=== PATIENT | male | born 1940 | race Caucasian/White ===

== ENCOUNTER 2018-05-10 15:11 | Emergency (ER) | payer MEDICARE ==
[2018-05-10 16:28] LABS: #Basophils 0.1 thou/uL (0.0-0.2); #Lymphocytes 2.3 thou/uL (1.20-3.40); #Neutrophils 10.5 thou/uL (1.40-6.50); %Basophils 0.5 % (0.0-1.0); %Eosinophils 0.3 % (0.0-10.0); %Lymphocytes 16.6 % (21.0-51.0); %Monocytes 7.2 % (0.0-10.0); %Neutrophils 75.4 % (42.0-75.0); Hemoglobin 8.8 g/dL (14.0-18.0); Mean Corpuscular HGB CONC 32.5 g/dL (32.0-36.0); Mean Corpuscular Hemoglobin 30.7 pg (27.0-31.0); Mean Corpuscular Volume 94.3 fL (78.0-98.0); Mean Platelet Volume 5.7 fL (7.4-10.4); Platelet Count 489 thou/uL (130-400); RBC Distribution Width 15.1 % (11.5-14.5); Red Blood Cell (RBC) Count 2.86 mill/uL (4.70-6.10)
[2018-05-10 16:50] LABS: ALT (SGPT) 16 U/L (8-55); AST (SGOT) 19 U/L (5-34); Albumin 3.9 g/dL (3.4-4.8); Alkaline Phosphatase 72 U/L (40-150); Anion Gap 17 mmol/L (10-20); BUN (Urea Nitrogen) 28 mg/dL (8.4-25.7); Bilirubin, Total 1.1 mg/dL (0.2-1.2); Calc. Creatinine Clearance 0 mL/min (70-130); Calcium 9.5 mg/dL (7.8-10.44); Carbon Dioxide 23 mmol/L (23-31); Chloride 104 mmol/L (98-107); Estimated GFR-MDRD 46; Globulin 2.8 g/dL (2.4-3.5); Glucose 147 mg/dL (83-110); Protein, Total 6.7 g/dL (5.8-8.1); Sodium 139 mmol/L (136-145)
--- NOTE | 2018-05-10 17:21 | RAD ---
PA AND LATERAL VIEWS CHEST: Date: 05/10/18 HISTORY: Cough. Chest pain. FINDINGS/IMPRESSION: Comparison made with exam of 03/10/18. There are changes of median sternotomy. Right-sided AICD remains in place. There has been interval pl acement of a left subclavian Port-A-Cath with tip in the projection of the SVC. The heart is enlarged . There is a right pleural effusion and adjacent consolidation. No pneumothoraces are seen. POS: [facility]
[2018-05-10] MEDS ORDERED: Piperacillin/Tazobactam 3.375 GM VIAL ONE (17:33)
[2018-05-10 18:13] LABS: Troponin I 0.017 ng/mL (< 0.028)
== END 2018-05-10 18:43 | disposition short-term general hospital (02) ==
LOC: NAV ERS 15:11
DX: J18.9 Pneumonia, unspecified organism (principal); D72.829 Elevated white blood cell count, unspecified; J90 Pleural effusion, not elsewhere classified; Z87.81 Personal history of (healed) traumatic fracture; S20.229D Contusion of unspecified back wall of thorax, subsequent encounter; W19.XXXA Unspecified fall, initial encounter
CPT/HCPCS: 71046; 80053; 83605; 83880; 84484; 85025; 87040; 93005; 94760; 96365; 96375; J1956; J2543

== ENCOUNTER 2018-05-24 13:39 | Inpatient (IN) | payer MEDICARE ==
[2018-05-24] MEDS ORDERED: Nitroglycerin 0.4 MG TAB (25 Tab Bottle) SL PRN (16:16)
[2018-05-24] MEDS ORDERED: Melatonin 3 MG TAB PO PRN (16:16)
[2018-05-24] MEDS ORDERED: traMADol HCl 50 MG TAB PO PRN (16:16)
[2018-05-24] MEDS ORDERED: Dextrose 50% Abboject 50 ML SYRINGE SLOW IVP PRN (16:31)
[2018-05-24] MEDS ORDERED: Dextrose 5% in Water 1,000 ML IV PRN (16:31)
[2018-05-24] MEDS ORDERED: HumaLOG 300 UNITS/3 ML VIAL SC PRN (16:31)
[2018-05-24] MEDS: Acetaminophen 500 MG TAB PO SCH ×2 (18:10→23:53)
[2018-05-24] MEDS: Latanoprost 0.005% Ophth Soln 2.5 ml Bottle EA EYE SCH (20:01)
[2018-05-24] MEDS: Lorazepam 1 MG TAB PO SCH (20:02)
[2018-05-24] MEDS: Amitriptyline HCl 25 MG TAB PO SCH (20:03)
[2018-05-24] MEDS: Carvedilol 25 MG TAB PO SCH (20:03)
[2018-05-24] MEDS: Dabigatran 150 mg Capsule PO SCH (20:04)
[2018-05-24] MEDS: Simvastatin 40 MG TAB PO SCH (20:04)
[2018-05-24] MEDS: Sacubitril 24.5 MG/Valsartan 25.5 MG TABLET PO SCH (20:04)
[2018-05-24] MEDS: NAMZARIC PO SCH (20:07)
[2018-05-25 05:35] LABS: #Basophils 0.1 thou/uL (0.0-0.2); #Eosinphils 0.3 thou/uL (0.0-0.7); #Monocytes 0.6 thou/uL (0.11-0.59); #Neutrophils 4.5 thou/uL (1.40-6.50); %Basophils 1.3 % (0.0-1.0); %Eosinophils 3.7 % (0.0-10.0); %Monocytes 7.8 % (0.0-10.0); %Neutrophils 60.2 % (42.0-75.0); Hemoglobin 10.9 g/dL (14.0-18.0); Mean Corpuscular HGB CONC 31.2 g/dL (32.0-36.0); Mean Corpuscular Hemoglobin 28.6 pg (27.0-31.0); Mean Corpuscular Volume 91.5 fL (78.0-98.0); Mean Platelet Volume 5.8 fL (7.4-10.4); Platelet Count 379 thou/uL (130-400); RBC Distribution Width 15.5 % (11.5-14.5); Red Blood Cell (RBC) Count 3.82 mill/uL (4.70-6.10); White Blood Cell (WBC) Count 7.4 thou/uL (4.8-10.8)
[2018-05-25 05:36] LABS: Bilirubin Negative (Negative); Blood, Urine Negative (Negative); Clarity Clear (Clear); Glucose, Urine (Dipstick) Negative (Negative); Leukocyte Negative (Negative); Nitrite Negative (Negative); Protein, Urine (Dipstick) Negative (Neg-Trace); Specific Gravity, Urine 1.015 (1.005-1.030); Urobilinogen 0.2 mg/dL (0.2-1.0); pH, Urine 6.5 (5.0-9.0)
[2018-05-25 05:47] LABS: ALT (SGPT) 38 U/L (8-55); AST (SGOT) 45 U/L (5-34); Albumin 3.3 g/dL (3.4-4.8); Alkaline Phosphatase 78 U/L (40-150); Anion Gap 14 mmol/L (10-20); BUN (Urea Nitrogen) 11 mg/dL (8.4-25.7); Bilirubin, Total 0.8 mg/dL (0.2-1.2); Calc. Creatinine Clearance 115 mL/min (70-130); Calcium 8.7 mg/dL (7.8-10.44); Carbon Dioxide 23 mmol/L (23-31); Chloride 107 mmol/L (98-107); Estimated GFR-MDRD 86; Globulin 2.3 g/dL (2.4-3.5); Glucose 116 mg/dL (83-110); Potassium 3.9 mmol/L (3.5-5.1); Protein, Total 5.6 g/dL (5.8-8.1); Sodium 140 mmol/L (136-145)
[2018-05-25 06:00] LABS: Bacteria/HPF None Seen HPF (None Seen); RBC/HPF None Seen HPF (0-3); Squamous Epithelial 0-3 HPF (0-3); WBC/HPF None Seen HPF (0-3)
[2018-05-25] MEDS: Levothyroxine Sodium 25 MCG TAB PO SCH (06:17)
[2018-05-25] MEDS: Acetaminophen 500 MG TAB PO SCH ×3 (06:17→18:18)
[2018-05-25] MEDS: Levothyroxine Sodium 112 MCG TAB PO SCH (06:17)
[2018-05-25] MEDS: Carvedilol 25 MG TAB PO SCH ×2 (08:07→20:08)
[2018-05-25] MEDS: Dabigatran 150 mg Capsule PO SCH ×2 (08:08→20:08)
[2018-05-25] MEDS: Digoxin 0.125 MG TAB PO SCH (08:08)
[2018-05-25] MEDS: Fish Oil 1,000 MG CAP PO SCH (08:09)
[2018-05-25] MEDS: Lantus 1000 UNITS/10 ML VIAL SC SCH (08:09)
[2018-05-25] MEDS: FLAXSEED OIL PO SCH (08:10)
[2018-05-25] MEDS: Multivitamin W/ Minerals 1 TAB PO SCH (08:10)
[2018-05-25] MEDS: Lorazepam 1 MG TAB PO SCH ×2 (08:10→20:09)
[2018-05-25] MEDS: Teriparatide [Forteo] 20 MCG SC SCH (08:10)
[2018-05-25] MEDS: VIT D3 VIT K PO SCH (08:11)
[2018-05-25] MEDS: BERBERINE PO SCH (08:11)
[2018-05-25] MEDS: Vit B12/Folic Acid/B6/Aa No.15 [Glycotrol Capsule] 1 CAP PO SCH (08:11)
[2018-05-25] MEDS: HOPS PO SCH (08:11)
[2018-05-25] MEDS: Sacubitril 24.5 MG/Valsartan 25.5 MG TABLET PO SCH ×2 (08:12→20:09)
[2018-05-25] MEDS ORDERED: Non-Formulary Item 1 EACH (Levothyroxine Sodium [Levothyroxine Sodium] 1 TAB) PO SCH (09:00)
[2018-05-25 14:53] VITALS: BMI 30.4
[2018-05-25] MEDS: NAMZARIC PO SCH (20:07)
[2018-05-25] MEDS: Latanoprost 0.005% Ophth Soln 2.5 ml Bottle EA EYE SCH (20:07)
[2018-05-25] MEDS: Amitriptyline HCl 25 MG TAB PO SCH (20:08)
[2018-05-25] MEDS: Simvastatin 40 MG TAB PO SCH (20:08)
[2018-05-25] MEDS ORDERED: Meloxicam 7.5 MG TAB PO SCH (21:00)
[2018-05-26] MEDS: Acetaminophen 500 MG TAB PO SCH ×2 (00:31→05:07)
[2018-05-26] MEDS: Levothyroxine Sodium 25 MCG TAB PO SCH (05:07)
[2018-05-26] MEDS: Levothyroxine Sodium 112 MCG TAB PO SCH (05:08)
--- NOTE | 2018-05-26 08:14 | PRG ---
DATE OF SERVICE: 05/25/2018 SUBJECTIVE: The patient feels well with no complaints. Slept well through the night with no shortness of breath or chest pain. He was admitted to [facility] for PT and OT and monitoring of his pulmonary and cardiac status after a right hemothorax requiring tube thoracostomy, which has been removed. OBJECTIVE: VITAL SIGNS: At this time show his pulse is 80 and irregular, blood pressure is 111/58, O2 sat is 95% on room air, afebrile. LUNGS: Show good breath sounds bilaterally. CHEST: Right side of the chest shows healed thoracostomy with no draining. ABDOMEN: Soft and nontender. CARDIAC: Shows irregularly irregular rhythm. SKIN/EXTREMITIES: Show no edema. LABORATORY DATA: Laboratory shows a white count of 7400, hematocrit 35, and hemoglobin 10.9. Sodium 140, potassium 3.9, chloride 107, bicarbonate 23, BUN 11, creatinine 0.8, glucose 116, calcium 8.7, total bilirubin 0.8, AST 45, ALT 38, albumin 3.3, and globulin 2.3. The patient walked 300 feet. Today, he feels well with no chest pain or shortness of breath. He is maintaining ADLs with no difficulty. ASSESSMENT AND PLAN: 1. Improving deconditioning greatly. We will discuss with Physical Therapy about possibility of discharge soon. 2. No evidence of recurrent hemothorax on Pradaxa. 3. Chronic atrial fibrillation, stable. 4. Chronic lymphocytic leukemia. We will discuss outpatient IVIG with the patient and with oncologist/duplicate maker. 5. Type 2 diabetes, controlled to goal. Job ID: [id number]
[2018-05-26] MEDS: Lantus 1000 UNITS/10 ML VIAL SC SCH (08:27)
[2018-05-26] MEDS: Multivitamin W/ Minerals 1 TAB PO SCH (08:29)
[2018-05-26] MEDS: Carvedilol 25 MG TAB PO SCH (08:29)
[2018-05-26] MEDS: Dabigatran 150 mg Capsule PO SCH (08:29)
[2018-05-26] MEDS: Sacubitril 24.5 MG/Valsartan 25.5 MG TABLET PO SCH (08:29)
[2018-05-26] MEDS: Fish Oil 1,000 MG CAP PO SCH (08:29)
[2018-05-26] MEDS: Digoxin 0.125 MG TAB PO SCH (08:29)
[2018-05-26] MEDS: Lorazepam 1 MG TAB PO SCH (08:30)
[2018-05-26] MEDS: FLAXSEED OIL PO SCH (08:30)
[2018-05-26] MEDS: Vit B12/Folic Acid/B6/Aa No.15 [Glycotrol Capsule] 1 CAP PO SCH (08:30)
[2018-05-26] MEDS: VIT D3 VIT K PO SCH (08:31)
[2018-05-26] MEDS: HOPS PO SCH (08:31)
[2018-05-26] MEDS: BERBERINE PO SCH (08:31)
[2018-05-26] MEDS: Teriparatide [Forteo] 20 MCG SC SCH (08:37)
[2018-05-26 09:32] VITALS: TEMP 98.7
[2018-05-26 12:57] VITALS: BP 92/60
--- NOTE | 2018-05-26 14:01 | HP ---
HISTORY OF PRESENT ILLNESS: The patient is a 78-year-old white male with a history of chronic atrial fibrillation; coronary artery disease, status post coronary artery bypass graft and defibrillator, who fell on April 24, suffered fractures of his right rib with 8 through 10 with no evidence of pneumo or hemothorax. He was discontinued of his Pradaxa, but was discharged home after a syncope workup with echocardiogram and monitoring. He was seen by his personal roll weigher, started back on his Pradaxa, was placed in a rehab facility for strengthening but became more and more short of breath, presented back to the hospital on May 10 when he was found to have a right hemothorax. He subsequently required tube thoracostomy with drainage of the hemothorax and with persistent drainage until 2 days prior to this admission here that his tube has been removed. Now, he is feeling well with only significant weakness, although he has been walking somewhat minimally with therapy at the hospital. He is admitted here to [facility] for continued PT and OT while monitoring his possibility of recurrent hemothorax. PAST MEDICAL HISTORY: Remarkable for history of CLL (chronic lymphocytic leukemia), on IVIG, being followed by Dr. Rojas with therapy due this week; coronary artery disease, status post the above mentioned coronary artery bypass graft and a defibrillator for 35% to 40% ejection fraction documented again on April 26 and has been restarted back on his Pradaxa; type 2 diabetes, being followed by the bolt header, on insulin 70/30; osteoporosis, on Forteo secondary to recurrent hip fracture; hypothyroidism, stable; hyperlipidemia, stable; mild dementia with behavioral disturbance, stable on medications. PAST SURGICAL HISTORY: Positive for right hip replacement, bilateral knee replacements, right rotator cuff surgery, cholecystectomy, thyroidectomy, coronary artery bypass graft, defibrillator placement. MEDICATIONS: On admission included: 1. Amitriptyline 25 mg nightly. 2. Carvedilol 12.5 twice daily. 3. Pradaxa 150 mg twice daily. 4. Digoxin 250 mcg daily. 5. Entresto twice daily. 6. Insulin Lantus 35 units every morning. 7. Levothyroxine 137 mcg daily. 8. Lorazepam 1 mg twice daily. 9. Memantine, unknown dose daily. 10. Forteo 20 mcg subcu daily. 11. Seroquel 25 mg twice daily. 12. Simvastatin 80 mg nightly. 13. Tramadol 50 mg every 6 hours as needed. 14. Aspirin 81 daily. ALLERGIES: HE HAS ALLERGIES TO CODEINE, HYDROMORPHONE, AND MORPHINE. SOCIAL HISTORY: He lives with his . He is a nonsmoker, nondrinker. REVIEW OF SYSTEMS: HEENT: Denies any headaches or dizziness, change in vision or hearing, hoarseness, or dysphagia. PULMONARY: He has some pain in the right side of his chest with breathing, but no severe pleurisy. No cough, sputum production, or hemoptysis. CARDIOVASCULAR: Denies chest pain, palpitations, orthopnea, paroxysmal nocturnal dyspnea, or edema. GASTROINTESTINAL: Denies nausea, vomiting, diarrhea, constipation, or abdominal pain. GENITOURINARY: Denies dysuria, hematuria, or nocturia. MUSCULOSKELETAL: Has some stiffness and soreness in his knees and hips. NEUROLOGIC: Denies localized numbness or weakness in arms or extremities. PHYSICAL EXAMINATION: GENERAL: The patient is an elderly white male, lying in bed, no acute distress. Oriented x3 and cooperative. VITAL SIGNS: Found to have blood pressure of 114/56, temperature 97.9, pulse 64, respirations 18, O2 saturations 96% on room air. HEENT: Shows pupils are equal, round, and reactive to light and accommodation. Sclerae anicteric. Conjunctivae pale. Oral mucous membranes are well hydrated. NECK: Supple. There are no nodes or masses. JVP is not elevated. Carotids 2+ and equal without bruit. No thyromegaly. LUNGS: Clear. No rales, rhonchi, rubs, or wheezes. CARDIAC: Shows irregular rhythm. No gallops or murmurs. ABDOMEN: Soft and nontender. No masses or organomegaly. SKIN/EXTREMITIES: Show trace edema. No clubbing or cyanosis. Some stiffness. No crepitance or swelling of the joints or extremities. NEUROLOGIC: Shows no focal findings. LABORATORY DATA: Shows most recently a white count of 8800, hematocrit 37, hemoglobin 11.8. PT 17.6, INR 1.4. Glucose 166. ASSESSMENT: A 78-year-old white male with multiple medical problems including coronary artery disease, atrial fibrillation, and chronic lymphocytic leukemia, who presents with a fall and fracture of 8, 9, 10 ribs on the right with subsequent hemothorax requiring tube thoracostomy which has resolved and tube has been removed, and he is now admitted to SNF for monitoring of his cardiorespiratory status while physical therapy and occupational therapy will be done. He will be continued on his Accu-Cheks and Lantus and monitored closely for diabetes. He will have discussion with Oncology about his IVIG that he states he is due to have this week. He will be continued on his dementia medications as he appears to be doing well on this. He will be continued on his antihypertensives. He will only be given tramadol as needed for pain. Job ID: [id number]
== END 2018-05-26 09:50 | disposition home or self-care (01) | DRG 949 ==
LOC: NAV ACUTE 13:39
PROVIDERS: ADMIT Internal Medicine; ATTEND Internal Medicine
DX: S27.1XXD Traumatic hemothorax, subsequent encounter (principal); C91.10 Chronic lymphocytic leukemia of B-cell type not having achieved remission; F03.91 Unspecified dementia, unspecified severity, with behavioral disturbance; S22.41XD Multiple fractures of ribs, right side, subsequent encounter for fracture with routine healing; W19.XXXD Unspecified fall, subsequent encounter; I25.10 Atherosclerotic heart disease of native coronary artery without angina pectoris; Z95.1 Presence of aortocoronary bypass graft; E11.9 Type 2 diabetes mellitus without complications; Z79.4 Long term (current) use of insulin; M81.0 Age-related osteoporosis without current pathological fracture; E78.5 Hyperlipidemia, unspecified; E03.9 Hypothyroidism, unspecified; I48.2 Chronic atrial fibrillation; Z79.02 Long term (current) use of antithrombotics/antiplatelets; Z95.810 Presence of automatic (implantable) cardiac defibrillator
CPT/HCPCS: 36416; 80053; 81001; 85025; G8978-GP-CK; G8979-GP-CI; J1815

== ENCOUNTER 2019-08-26 14:01 | Inpatient (IN) | payer MEDICARE ==
[2019-08-26 14:42] VITALS: BMI 30.3
[2019-08-26] MEDS ORDERED: Dextrose 50% Abboject 50 ML SYRINGE SLOW IVP PRN (18:01)
[2019-08-26] MEDS ORDERED: Dextrose 5% in Water 1,000 ML IV PRN (18:01)
[2019-08-26] MEDS: Latanoprost 0.005% Ophth Soln 2.5 ml Bottle EA EYE SCH (20:54)
[2019-08-26] MEDS: Dabigatran 150 mg Capsule PO SCH (20:55)
[2019-08-26] MEDS: Meloxicam 7.5 MG TAB PO SCH (20:55)
[2019-08-26] MEDS: Lorazepam 0.5 MG TAB PO SCH (20:55)
[2019-08-26] MEDS: Carvedilol 25 MG TAB PO SCH (20:55)
[2019-08-26] MEDS: Lantus 1000 UNITS/10 ML VIAL SC SCH (20:56)
[2019-08-26] MEDS: Simvastatin 40 MG TAB PO SCH (20:56)
[2019-08-27 05:23] LABS: #Basophils 0.1 thou/uL (0.0-0.2); #Eosinphils 0.4 thou/uL (0.0-0.7); #Lymphocytes 1.8 thou/uL (1.20-3.40); #Monocytes 0.6 thou/uL (0.11-0.59); #Neutrophils 3.3 thou/uL (1.40-6.50); %Basophils 1.2 % (0.0-1.0); %Lymphocytes 29.9 % (21.0-51.0); %Monocytes 8.9 % (0.0-10.0); %Neutrophils 53.1 % (42.0-75.0); Hemoglobin 14.5 g/dL (14.0-18.0); Mean Corpuscular HGB CONC 32.8 g/dL (32.0-36.0); Mean Corpuscular Hemoglobin 30.6 pg (27.0-31.0); Mean Corpuscular Volume 93.3 fL (78.0-98.0); Mean Platelet Volume 6.5 fL (7.4-10.4); Platelet Count 182 thou/uL (130-400); RBC Distribution Width 13.3 % (11.5-14.5); Red Blood Cell (RBC) Count 4.76 mill/uL (4.70-6.10); White Blood Cell (WBC) Count 6.1 thou/uL (4.8-10.8)
[2019-08-27] MEDS: Levothyroxine Sodium 125 MCG TAB PO SCH (05:42)
[2019-08-27] MEDS: Dabigatran 150 mg Capsule PO SCH ×2 (08:49→21:24)
[2019-08-27] MEDS: Lorazepam 0.5 MG TAB PO SCH ×2 (08:56→21:23)
[2019-08-27] MEDS: Amitriptyline HCl 25 MG TAB PO SCH (08:57)
[2019-08-27] MEDS: Digoxin 0.125 MG TAB PO SCH (08:58)
[2019-08-27] MEDS: Carvedilol 25 MG TAB PO SCH ×2 (08:59→21:24)
[2019-08-27] MEDS: Aspirin Chewable 81 MG TAB PO SCH (09:00)
[2019-08-27] MEDS: MEMANTINE HCL PO SCH (17:29)
[2019-08-27] MEDS: DONEPEZIL HCL PO SCH (17:29)
[2019-08-27] MEDS: Lantus 1000 UNITS/10 ML VIAL SC SCH (21:22)
[2019-08-27] MEDS: Simvastatin 40 MG TAB PO SCH (21:23)
[2019-08-27] MEDS: Latanoprost 0.005% Ophth Soln 2.5 ml Bottle EA EYE SCH (21:23)
[2019-08-27] MEDS: Meloxicam 7.5 MG TAB PO SCH (21:24)
--- NOTE | 2019-08-27 22:27 | PRG ---
DATE OF SERVICE: 08/27/2019 SUBJECTIVE: Patient resting in bed with no complaints. is not in the room. OBJECTIVE: VITAL SIGNS: Shows temperature 96.9, pulse 54, respirations 20, O2 sats 95% on room air. LUNGS: Clear. CARDIAC EXAMINATION: Showed regular slow rhythm. ABDOMEN: Soft and nontender. ASSESSMENT: 1. Stable coronary artery disease. 2. Stable diabetes, on decreased dose of insulin. 3. Stable atrial fibrillation with rate control, on anticoagulation effect with some bradycardia and we will obtain EKG, maybe the cause of some of his symptomatology as he only has defibrillator, not a pacemaker defibrillator. PLAN: 1. Obtain EKG. 2. Continue to monitor bradycardia with symptoms. 3. Continue PT/OT. 4. Continue Lantus 5 units nightly and sliding scale. Job ID: [id number]
--- NOTE | 2019-08-28 03:30 | HP ---
LOCATION: Admission to the [facility]. HISTORY OF PRESENT ILLNESS: The patient is a 79-year-old white male, well known to myself from a previous admission to the [facility] several years ago for weakness and deconditioning. He has a long history of gradually progressive dementia superimposed on a previous history of coronary artery disease, well-controlled diabetes until recently, and chronic lymphocytic leukemia. His lymphocytic leukemia however has been in remission, but he has been on IVIG for 6 weeks. He also has a history of myocardial infarction, systolic heart failure and had an implantable defibrillator. He initially was on 35 units of Lantus and presented with symptoms to the [facility] of disorientation, clamminess and weakness. At that time, was found not to be hypoglycemic, but during his hospitalization, he had decrease in dose of his Lantus to 5 units at night. He had similar symptoms of clamminess and weakness when he had his coronary event in 2002, but multiple evaluations since that time have shown no significant coronary artery disease. He is unable to give significant history himself because of his dementia, but the is very well versed and given a significant history. ALLERGIES: HE IS ALLERGIC TO CODEINE, DILAUDID, MORPHINE. MEDICATIONS: He is on; 1. Amitriptyline 25 daily. 2. Aspirin 81 daily. 3. Coreg 25 twice daily. 4. Pradaxa 150 twice daily. 5. Digoxin 0.25 daily. 6. Lantus 5 units nightly. 7. Levothyroxine 125 mcg daily. 8. Lorazepam 1 mg twice daily. 9. Mobic 15 nightly. 10. Simvastatin 80 nightly. ALLERGIES: HE HAS NO KNOWN ALLERGIES. SOCIAL HISTORY: He lives with his of many years. He is a nonsmoker, nondrinker. REVIEW OF SYSTEMS: HEENT: He has no change in his vision or hearing. No hoarseness or dysphagia. PULMONARY: Denies cough, sputum production, pneumonia, asthma, or tuberculosis. CARDIOVASCULAR: Denies chest pain, orthopnea, paroxysmal nocturnal dyspnea. Only complains of weakness, confusion, disorientation at times. GASTROINTESTINAL: Denies nausea, vomiting, diarrhea, constipation, or abdominal pain. GENITOURINARY: Denies dysuria, hematuria or nocturia. MUSCULOSKELETAL: Denies stiffness or swelling in joints of extremities. PHYSICAL EXAMINATION: GENERAL: Patient is alert and oriented, lucid, but unable to give significant history. VITAL SIGNS: Show him to have temperature 96.9, pulse 53, respirations 18, O2 sats 97% on room air, blood pressure 134/73. HEENT: Pupils are equal, round, and reactive to light and accommodation. Sclerae anicteric. Conjunctivae pale. Oral mucous membranes well hydrated. NECK: Supple. No nodes or masses. JVP is not elevated. LUNGS: Clear. CARDIAC: Irregular rhythm. ABDOMEN: Soft, nontender. No masses or organomegaly. Defibrillator is in place. SKIN/EXTREMITIES: Display no edema, clubbing or cyanosis. NEUROLOGIC: Shows no focal findings. ASSESSMENT: 1. Recurrent weak spells of unknown etiology. No evidence of arrhythmia on defibrillator evaluation. 2. Type 2 diabetes, controlled to goal, but on decreasing requirements for Lantus and we will continue to monitor on this dose. 3. Hypothyroidism, stable. 4. Anxiety, stable. 5. Chronic atrial fibrillation, on rate control and anticoagulation. PLAN: 1. Continue to monitor on lower dose of insulin. 2. Continue home medications and monitor for any significant arrhythmia. 3. Continue PT, OT with therapy. 4. Continue rate control and anticoagulation with possible underlying atrial fibrillation and document with EKG. Job ID: [id number]
[2019-08-28] MEDS: HumaLOG 300 UNITS/3 ML VIAL SC PRN ×3 (06:24→16:12)
[2019-08-28] MEDS: Levothyroxine Sodium 125 MCG TAB PO SCH (06:25)
[2019-08-28] MEDS: Carvedilol 25 MG TAB PO SCH ×2 (08:51→21:35)
[2019-08-28] MEDS: Amitriptyline HCl 25 MG TAB PO SCH (08:51)
[2019-08-28] MEDS: Aspirin Chewable 81 MG TAB PO SCH (08:51)
[2019-08-28] MEDS: Dabigatran 150 mg Capsule PO SCH ×2 (08:51→21:35)
[2019-08-28] MEDS: Lorazepam 0.5 MG TAB PO SCH ×2 (08:52→21:35)
[2019-08-28] MEDS: MEMANTINE HCL PO SCH (11:10)
[2019-08-28] MEDS: DONEPEZIL HCL PO SCH (11:10)
[2019-08-28] MEDS: Digoxin 0.125 MG TAB PO SCH (11:11)
--- NOTE | 2019-08-28 20:43 | PRG ---
DATE OF SERVICE: 08/28/2019 SUBJECTIVE: The patient feels well, lying in bed, resting, has waiting for more therapy. Has had no further weak spells and has had stable vital signs and Accu-Cheks. OBJECTIVE: VITAL SIGNS: Show temperature is 96.9, pulse 51, respirations 20, O2 sats 98% on room air, and blood pressure 155/76. LUNGS: Clear. CARDIAC: Shows regular rhythm. ABDOMEN: Soft and nontender. Accu-Cheks ranged from 157 to 160. ASSESSMENT: 1. Stable atrial fibrillation with rate control in fact with some bradycardia which may be causing some of his symptomatology. 2. Type 2 diabetes, controlled to goal. PLAN: 1. Decrease carvedilol 12.5 twice daily. 2. Repeat BMP in the a.m. Job ID: [id number]
[2019-08-28] MEDS: Lantus 1000 UNITS/10 ML VIAL SC SCH (21:34)
[2019-08-28] MEDS: Latanoprost 0.005% Ophth Soln 2.5 ml Bottle EA EYE SCH (21:34)
[2019-08-28] MEDS: Meloxicam 7.5 MG TAB PO SCH (21:35)
[2019-08-28] MEDS: Simvastatin 40 MG TAB PO SCH (21:35)
[2019-08-29] MEDS: Levothyroxine Sodium 125 MCG TAB PO SCH (05:29)
[2019-08-29 05:34] LABS: ALT (SGPT) 33 U/L (8-55); AST (SGOT) 24 U/L (5-34); Albumin 4.2 g/dL (3.4-4.8); Alkaline Phosphatase 65 U/L (40-110); Anion Gap 15 mmol/L (10-20); BUN (Urea Nitrogen) 19 mg/dL (8.4-25.7); Bilirubin, Total 1.5 mg/dL (0.2-1.2); Calc. Creatinine Clearance 86 mL/min (70-130); Calcium 8.3 mg/dL (7.8-10.44); Carbon Dioxide 23 mmol/L (23-31); Chloride 104 mmol/L (98-107); Estimated GFR-MDRD 66; Globulin 2.1 g/dL (2.4-3.5); Glucose 155 mg/dL (83-110); Potassium 4.1 mmol/L (3.5-5.1); Protein, Total 6.3 g/dL (5.8-8.1); Sodium 138 mmol/L (136-145)
[2019-08-29] MEDS: Dabigatran 150 mg Capsule PO SCH ×2 (08:30→19:54)
[2019-08-29] MEDS: Carvedilol 25 MG TAB PO SCH ×2 (08:30→19:53)
[2019-08-29] MEDS: Digoxin 0.125 MG TAB PO SCH (08:31)
[2019-08-29] MEDS: Aspirin Chewable 81 MG TAB PO SCH (08:31)
[2019-08-29] MEDS: Amitriptyline HCl 25 MG TAB PO SCH (08:31)
[2019-08-29] MEDS: Lorazepam 0.5 MG TAB PO SCH ×2 (08:32→19:53)
[2019-08-29] MEDS: HumaLOG 300 UNITS/3 ML VIAL SC PRN (11:17)
[2019-08-29] MEDS: MEMANTINE HCL PO SCH (14:34)
[2019-08-29] MEDS: DONEPEZIL HCL PO SCH (14:34)
[2019-08-29] MEDS: Simvastatin 40 MG TAB PO SCH (19:52)
[2019-08-29] MEDS: Meloxicam 7.5 MG TAB PO SCH (19:52)
[2019-08-29] MEDS: Lantus 1000 UNITS/10 ML VIAL SC SCH (22:26)
[2019-08-29] MEDS: Latanoprost 0.005% Ophth Soln 2.5 ml Bottle EA EYE SCH (22:27)
[2019-08-30] MEDS: Levothyroxine Sodium 125 MCG TAB PO SCH ×2 (06:04→07:01)
[2019-08-30] MEDS: HumaLOG 300 UNITS/3 ML VIAL SC PRN (07:01)
--- NOTE | 2019-08-30 07:39 | PRG ---
DATE OF SERVICE: 08/29/2019 SUBJECTIVE: The patient feels well, no complaints, is ready to go home. Discussed with his who feels also that she can do his therapy as well as he has had no further syncopal or near syncopal episodes and has had stable vital signs and Accu-Cheks. Apparently, his pacemaker has been interrogated also by his paving inspector with no arrhythmia. OBJECTIVE: VITAL SIGNS: Shown his blood pressure is elevated tonight because of agitation, but has been normal prior to this, 191/86; temperature is 96; pulse 59; respirations 20; and O2 saturation 97% on room air. Blood pressure earlier in the afternoon was 137/64. Accu-Cheks have been very stable from 130 to 170. LUNGS: Clear. CARDIAC: Examination shows regular rhythm. ABDOMEN: Soft and nontender. NEUROLOGICAL: Shows no focal findings. Sodium is 138, potassium 4.1, chloride 104, bicarb 23, BUN 19, creatinine 1.09. Liver functions normal except for slightly elevated bilirubin of 1.5. ASSESSMENT: 1. Stable atrial fibrillation. No significant bradycardia documented by nurses and on interrogation of the pacemaker. 2. Type 2 diabetes, controlled to goal. 3. Near syncopal episodes, improved during in the hospital. PLAN: Discharge tomorrow on decreased dose carvedilol 12.5 twice daily. Job ID: [id number]
[2019-08-30 07:40] VITALS: BP 154/90; TEMP 97.7
[2019-08-30] MEDS: Aspirin Chewable 81 MG TAB PO SCH (08:30)
[2019-08-30] MEDS: Amitriptyline HCl 25 MG TAB PO SCH (08:30)
[2019-08-30] MEDS: Digoxin 0.125 MG TAB PO SCH (08:30)
[2019-08-30] MEDS: Dabigatran 150 mg Capsule PO SCH (08:31)
[2019-08-30] MEDS: Lorazepam 0.5 MG TAB PO SCH (08:31)
[2019-08-30] MEDS: Carvedilol 25 MG TAB PO SCH (08:31)
[2019-08-30] MEDS: MEMANTINE HCL PO SCH (08:33)
[2019-08-30] MEDS: DONEPEZIL HCL PO SCH (08:33)
--- NOTE | 2019-09-01 23:00 | PQF ---
Roverto Garcia LUKE MD [id number] CLINICAL DOCUMENTATION CLARIFICATION FORM: POST DISCHARGE Addendum to original discharge summary date: ____ Late entry note date: __ DATE:09/01/2019 ATTN:ADRIÁN MIGUEL MD Please exercise your independent, professional judgment in responding to the clarification form. Clinical indicators are provided on the bottom of this form for your review Please check appropriate box(s): Kindly clarify the weakness etiology [ ] Weakness due to Dementia [ ] Weakness due to bradycardia [x ] Weakness due to unknown etiology [ ] Other diagnosis [ ] Unable to determine For continuity of documentation, please document condition throughout progress notes and discharge summary. Thank You. CLINICAL INDICATORS - SIGNS / SYMPTOMS / LABS He has a long history of gradually progressive dementia superimposed on a previous history of CAD-Documented in H&P on 08/26 by Deepthi Miguel MD Recurrent weak spells of unknown etiology. No evidence of arrhythmia on defibrillator evaluation-Documented in H&P on 08/26 by Deepthi Miguel MD Stable atrial fibrillation with rate control, on anticoagulation effect with some bradycardia and we will obtain EKG, may be the cause of some of his symptomatology as he only has defibrillator , not a pacemaker defibrillator- Documented in PN on 08/26 by Deepthi Miguel MD Stable atrila fibrillation with rate control, in fact with some bradycardia which may be causing some of his symptomatology-Documented in PN on 08/27 by Deepthi Miguel MD NO significant bradycardia documented by nurses and on interrogation of the pacemaker-Documented in PN on 08/29 by Deepthi Miguel MD [employer] He has a long history of gradually progressive dementia superimposed on a previous history of CAD-Documented in H&P on 08/26 by Deepthi Miguel MD Recurrent weak spells of unknown etiology. No evidence of arrhythmia on defibrillator evaluation-Documented in H&P on 08/26 by Deepthi Miguel MD Stable atrial fibrillation with rate control, on anticoagulation effect with some bradycardia and we will obtain EKG, may be the cause of some of his symptomatology as he only has defibrillator , not a pacemaker defibrillator- Documented in TREATMENTS: Continue home medications and monitor for any significant arrhythmia-Documented in H&P on 08/26 by Deepthi Miguel MD Continue PT.OT with therapy-Documented in H&P on 08/26 by Deepthi Miguel MD Continue rate control and anticoagulation with possible underlying atrial fibrillation and document with EKG-Documented in H&P on 08/26 by Deepthi Miguel MD Obtain EKG-Documented in PN on 08/26 by Deepthi Miguel MD Continue to monitor bradycardia with symptoms-Documented in PN on 08/26 by Deepthi Miguel MD Discharge tomorrow on decreased dose carvedilol 12.5 twicw daily -Documented in PN on 08/29 by Deepthi Miguel MD [employer] Medical Coding Technician [employer] on 08/26 by Deepthi Miguel MD (This form is maintained as a part of the permanent medical record) 2014 [employer] All Rights Reserved [email or web address]
== END 2019-08-30 10:45 | disposition home or self-care (01) | DRG 948 ==
LOC: NAV ACUTE 14:01
PROVIDERS: ADMIT Internal Medicine; ATTEND Internal Medicine
DX: R53.1 Weakness (principal); C91.11 Chronic lymphocytic leukemia of B-cell type in remission; I50.22 Chronic systolic (congestive) heart failure; I48.20 Chronic atrial fibrillation, unspecified; F03.90 Unspecified dementia, unspecified severity, without behavioral disturbance, psychotic disturbance, mood disturbance, and anxiety; I25.10 Atherosclerotic heart disease of native coronary artery without angina pectoris; I25.2 Old myocardial infarction; Z88.5 Allergy status to narcotic agent; E03.9 Hypothyroidism, unspecified; Z95.810 Presence of automatic (implantable) cardiac defibrillator; R55 Syncope and collapse
CPT/HCPCS: 36416; 80053; 83880; 85025; J1815

== ENCOUNTER 2021-06-06 08:51 | Emergency (ER) | payer MEDICARE ==
[2021-06-06 09:35] LABS: #Basophils 0.1 thou/uL (0.0-0.2); #Eosinphils 0.3 thou/uL (0.0-0.7); #Lymphocytes 2.9 thou/uL (1.20-3.40); #Monocytes 0.7 thou/uL (0.11-0.59); #Neutrophils 7.8 thou/uL (1.40-6.50); %Basophils 0.7 % (0.0-1.0); %Eosinophils 2.7 % (0.0-10.0); %Lymphocytes 24.7 % (21.0-51.0); %Monocytes 5.7 % (0.0-10.0); %Neutrophils 66.3 % (42.0-75.0); Hemoglobin 14.1 g/dL (14.0-18.0); Mean Corpuscular HGB CONC 31.7 g/dL (32.0-36.0); Mean Corpuscular Hemoglobin 30.1 pg (27.0-31.0); Mean Corpuscular Volume 94.9 fL (78.0-98.0); Mean Platelet Volume 5.9 fL (7.4-10.4); Platelet Count 179 thou/uL (130-400); RBC Distribution Width 13.2 % (11.5-14.5); Red Blood Cell (RBC) Count 4.69 mill/uL (4.70-6.10); White Blood Cell (WBC) Count 11.7 thou/uL (4.8-10.8)
[2021-06-06 09:54] LABS: ALT (SGPT) 26 U/L (8-55); AST (SGOT) 30 U/L (5-34); Albumin 4.4 g/dL (3.4-4.8); Alkaline Phosphatase 56 U/L (40-110); Anion Gap 13 mmol/L (10-20); BUN (Urea Nitrogen) 14 mg/dL (8.4-25.7); Bilirubin, Total 2.1 mg/dL (0.2-1.2); Calc. Creatinine Clearance 0 mL/min (70-130); Calcium 9.3 mg/dL (7.8-10.44); Carbon Dioxide 24 mmol/L (23-31); Chloride 105 mmol/L (98-107); Globulin 2.8 g/dL (2.4-3.5); Glucose 119 mg/dL (83-110); Potassium 4.8 mmol/L (3.5-5.1); Protein, Total 7.2 g/dL (5.8-8.1); Sodium 137 mmol/L (136-145)
== END 2021-06-06 11:28 | disposition home or self-care (01) ==
LOC: NAV ERS 08:51
DX: J06.9 Acute upper respiratory infection, unspecified (principal); I25.10 Atherosclerotic heart disease of native coronary artery without angina pectoris; E11.9 Type 2 diabetes mellitus without complications; E03.9 Hypothyroidism, unspecified; I48.91 Unspecified atrial fibrillation; E78.5 Hyperlipidemia, unspecified; Z79.82 Long term (current) use of aspirin; Z79.4 Long term (current) use of insulin; Z79.899 Other long term (current) drug therapy
CPT/HCPCS: 36415; 71045; 80053; 83605; 84484; 85025; 93005

== ENCOUNTER 2021-06-06 16:17 | Inpatient (IN) | payer MEDICARE ==
[2021-06-06 18:57] LABS: SARS-CoV-2 NAA Rapid Test Not Detected (NotDetected)
[2021-06-06] MEDS ORDERED: Ondansetron ODT 4 MG TAB SL PRN (20:14)
[2021-06-06] MEDS: Sodium Chloride 0.9% 1,000 ML IV SCH (21:10)
[2021-06-06] MEDS: Latanoprost 0.005% Ophth Soln 2.5 ml Bottle EA EYE SCH (21:16)
[2021-06-06] MEDS: Dabigatran 150 mg Capsule PO SCH (21:17)
[2021-06-06] MEDS: Donepezil HCl 10 MG TAB PO SCH (21:17)
[2021-06-06] MEDS: Carvedilol 6.25 MG TAB PO SCH (21:17)
[2021-06-06] MEDS: Amitriptyline HCl 25 MG TAB PO SCH (21:17)
[2021-06-06] MEDS: Atorvastatin Calcium 10 MG TAB PO SCH (21:18)
[2021-06-06] MEDS: Meloxicam 7.5 MG TAB PO SCH (21:18)
[2021-06-07] MEDS: Levothyroxine 150 MCG TAB PO SCH (06:21)
[2021-06-07] MEDS: Sodium Chloride 0.9% 1,000 ML IV SCH ×2 (07:25→17:37)
[2021-06-07 08:32] LABS: #Basophils 0.1 thou/uL (0.0-0.2); #Eosinphils 0.3 thou/uL (0.0-0.7); #Lymphocytes 2.6 thou/uL (1.20-3.40); #Monocytes 0.7 thou/uL (0.11-0.59); #Neutrophils 4.2 thou/uL (1.40-6.50); %Basophils 1.1 % (0.0-1.0); %Eosinophils 4.2 % (0.0-10.0); %Lymphocytes 32.6 % (21.0-51.0); %Monocytes 9.2 % (0.0-10.0); %Neutrophils 52.9 % (42.0-75.0); Hemoglobin 13.3 g/dL (14.0-18.0); Mean Corpuscular HGB CONC 31.4 g/dL (32.0-36.0); Mean Corpuscular Volume 95.7 fL (78.0-98.0); Mean Platelet Volume 7.3 fL (7.4-10.4); Platelet Count 161 thou/uL (130-400); RBC Distribution Width 13.2 % (11.5-14.5); Red Blood Cell (RBC) Count 4.42 mill/uL (4.70-6.10)
[2021-06-07 08:34] LABS: Anion Gap 12 mmol/L (10-20); BUN (Urea Nitrogen) 14 mg/dL (8.4-25.7); Calc. Creatinine Clearance 83 mL/min (70-130); Calcium 8.8 mg/dL (7.8-10.44); Carbon Dioxide 23 mmol/L (23-31); Chloride 106 mmol/L (98-107); Glucose 89 mg/dL (83-110); Potassium 4.3 mmol/L (3.5-5.1); Sodium 137 mmol/L (136-145)
[2021-06-07] MEDS: Dabigatran 150 mg Capsule PO SCH ×2 (08:54→20:57)
[2021-06-07] MEDS: Carvedilol 6.25 MG TAB PO SCH ×2 (08:54→20:57)
[2021-06-07] MEDS: Aspirin Chewable 81 MG TAB PO SCH (08:55)
[2021-06-07] MEDS: Lantus 1000 UNITS/10 ML VIAL SC SCH (08:56)
[2021-06-07] MEDS: Acetaminophen 500 MG TAB PO PRN ×2 (10:22→20:57)
[2021-06-07] MEDS: Alogliptin 25 MG TAB PO SCH (10:23)
[2021-06-07] MEDS ORDERED: Nitroglycerin 0.4 MG TAB (25 Tab Bottle) SL PRN (11:29)
[2021-06-07] MEDS: Meloxicam 7.5 MG TAB PO SCH (20:56)
[2021-06-07] MEDS: Latanoprost 0.005% Ophth Soln 2.5 ml Bottle EA EYE SCH (20:56)
[2021-06-07] MEDS: Amitriptyline HCl 25 MG TAB PO SCH (20:57)
[2021-06-07] MEDS: Donepezil HCl 10 MG TAB PO SCH (20:57)
[2021-06-07] MEDS: Atorvastatin Calcium 10 MG TAB PO SCH (20:57)
[2021-06-08] MEDS: Sodium Chloride 0.9% 1,000 ML IV SCH (03:11)
[2021-06-08] MEDS: Levothyroxine 150 MCG TAB PO SCH (06:19)
[2021-06-08] MEDS: Alogliptin 25 MG TAB PO SCH (08:40)
[2021-06-08] MEDS: Dabigatran 150 mg Capsule PO SCH ×2 (08:40→21:04)
[2021-06-08] MEDS: Carvedilol 6.25 MG TAB PO SCH ×2 (08:41→21:04)
[2021-06-08] MEDS: Fish Oil 1,000 MG CAP PO SCH (08:41)
[2021-06-08] MEDS: Multivitamin W/ Minerals 1 TAB PO SCH (08:42)
[2021-06-08] MEDS: Aspirin Chewable 81 MG TAB PO SCH (08:43)
[2021-06-08] MEDS: Lantus 1000 UNITS/10 ML VIAL SC SCH (08:43)
[2021-06-08] MEDS ORDERED: IRON PO SCH (09:00)
[2021-06-08] MEDS ORDERED: MECOBALAMIN PO SCH (09:00)
[2021-06-08] MEDS ORDERED: FLAXSEED OIL PO SCH (09:00)
[2021-06-08] MEDS: Latanoprost 0.005% Ophth Soln 2.5 ml Bottle EA EYE SCH (21:03)
[2021-06-08] MEDS: Meloxicam 7.5 MG TAB PO SCH (21:04)
[2021-06-08] MEDS: Donepezil HCl 10 MG TAB PO SCH (21:04)
[2021-06-08] MEDS: Amitriptyline HCl 25 MG TAB PO SCH (21:04)
[2021-06-08] MEDS: Atorvastatin Calcium 10 MG TAB PO SCH (21:04)
[2021-06-08] MEDS: Acetaminophen 325 MG TAB PO PRN (21:05)
[2021-06-09] MEDS: Levothyroxine 150 MCG TAB PO SCH (05:57)
[2021-06-09 06:14] VITALS: BMI 33.3
[2021-06-09 06:42] LABS: Anion Gap 11 mmol/L (10-20); BUN (Urea Nitrogen) 18 mg/dL (8.4-25.7); Calc. Creatinine Clearance 99 mL/min (70-130); Calcium 8.5 mg/dL (7.8-10.44); Carbon Dioxide 24 mmol/L (23-31); Chloride 108 mmol/L (98-107); Glucose 87 mg/dL (83-110); Sodium 139 mmol/L (136-145)
[2021-06-09 07:01] LABS: #Basophils 0.1 thou/uL (0.0-0.2); #Eosinphils 0.4 thou/uL (0.0-0.7); #Lymphocytes 2.7 thou/uL (1.20-3.40); #Monocytes 0.5 thou/uL (0.11-0.59); #Neutrophils 3.3 thou/uL (1.40-6.50); %Eosinophils 6.2 % (0.0-10.0); %Lymphocytes 38.1 % (21.0-51.0); %Neutrophils 47.7 % (42.0-75.0); Hemoglobin 13.5 g/dL (14.0-18.0); Mean Corpuscular HGB CONC 32.3 g/dL (32.0-36.0); Mean Corpuscular Hemoglobin 30.5 pg (27.0-31.0); Mean Corpuscular Volume 94.4 fL (78.0-98.0); Mean Platelet Volume 6.4 fL (7.4-10.4); Platelet Count 164 thou/uL (130-400); RBC Distribution Width 13.2 % (11.5-14.5); Red Blood Cell (RBC) Count 4.42 mill/uL (4.70-6.10)
[2021-06-09] MEDS: Carvedilol 6.25 MG TAB PO SCH ×2 (08:26→20:57)
[2021-06-09] MEDS: Alogliptin 25 MG TAB PO SCH (08:26)
[2021-06-09] MEDS: Fish Oil 1,000 MG CAP PO SCH (08:26)
[2021-06-09] MEDS: Multivitamin W/ Minerals 1 TAB PO SCH (08:26)
[2021-06-09] MEDS: Aspirin Chewable 81 MG TAB PO SCH (08:26)
[2021-06-09] MEDS: Dabigatran 150 mg Capsule PO SCH ×2 (08:27→20:57)
[2021-06-09] MEDS: Lantus 1000 UNITS/10 ML VIAL SC SCH (08:41)
[2021-06-09] MEDS: Atorvastatin Calcium 10 MG TAB PO SCH (20:57)
[2021-06-09] MEDS: Donepezil HCl 10 MG TAB PO SCH (20:57)
[2021-06-09] MEDS: Amitriptyline HCl 25 MG TAB PO SCH (20:57)
[2021-06-09] MEDS: Acetaminophen 325 MG TAB PO PRN (20:58)
[2021-06-09] MEDS: Latanoprost 0.005% Ophth Soln 2.5 ml Bottle EA EYE SCH (20:59)
[2021-06-09] MEDS: Meloxicam 7.5 MG TAB PO SCH (20:59)
[2021-06-10] MEDS: Levothyroxine 150 MCG TAB PO SCH (06:07)
[2021-06-10] MEDS: Aspirin Chewable 81 MG TAB PO SCH (08:44)
[2021-06-10] MEDS: Multivitamin W/ Minerals 1 TAB PO SCH (08:45)
[2021-06-10] MEDS: Fish Oil 1,000 MG CAP PO SCH (08:45)
[2021-06-10] MEDS: Carvedilol 6.25 MG TAB PO SCH (08:45)
[2021-06-10] MEDS: Alogliptin 25 MG TAB PO SCH (08:46)
[2021-06-10] MEDS: Dabigatran 150 mg Capsule PO SCH (08:46)
[2021-06-10] MEDS: Lantus 1000 UNITS/10 ML VIAL SC SCH (08:51)
[2021-06-10 11:55] VITALS: TEMP 97.6
[2021-06-10 17:00] VITALS: BP 147/80
== END 2021-06-10 17:20 | disposition swing bed (61) | DRG 153 ==
LOC: UNDOADMOB 17:12 → NAV ACUTE 17:12 → OBSVTOIN 06-10 13:14
PROVIDERS: ADMIT Family Medicine; ATTEND Family Medicine
DX: J06.9 Acute upper respiratory infection, unspecified (principal); C91.10 Chronic lymphocytic leukemia of B-cell type not having achieved remission; M19.90 Unspecified osteoarthritis, unspecified site; E78.00 Pure hypercholesterolemia, unspecified; F32.A Depression, unspecified; E11.9 Type 2 diabetes mellitus without complications; F03.90 Unspecified dementia, unspecified severity, without behavioral disturbance, psychotic disturbance, mood disturbance, and anxiety; E89.0 Postprocedural hypothyroidism; Z96.641 Presence of right artificial hip joint; Z96.653 Presence of artificial knee joint, bilateral; Z20.822 Contact with and (suspected) exposure to COVID-19; E86.0 Dehydration; H40.9 Unspecified glaucoma; Z95.0 Presence of cardiac pacemaker; Z87.891 Personal history of nicotine dependence; Z86.73 Personal history of transient ischemic attack (TIA), and cerebral infarction without residual deficits; Z79.899 Other long term (current) drug therapy; Z88.5 Allergy status to narcotic agent; Z88.8 Allergy status to other drugs, medicaments and biological substances; I25.10 Atherosclerotic heart disease of native coronary artery without angina pectoris; I48.91 Unspecified atrial fibrillation; E78.5 Hyperlipidemia, unspecified; Z79.82 Long term (current) use of aspirin; Z79.4 Long term (current) use of insulin
CPT/HCPCS: 36415; 36416; 71045; 80048; 80053; 83605; 84484; 85025; 93005; 94640; G0378; J1815; J7050; J7620; U0002

== ENCOUNTER 2021-06-10 14:44 | Inpatient (IN) | payer MEDICARE ==
[2021-06-10] MEDS ORDERED: Nitroglycerin 0.4 MG TAB (25 Tab Bottle) SL PRN (18:54)
[2021-06-10] MEDS: Dabigatran 150 mg Capsule PO SCH (20:48)
[2021-06-10] MEDS: Meloxicam 7.5 MG TAB PO SCH (20:49)
[2021-06-10] MEDS: Donepezil HCl 10 MG TAB PO SCH (20:50)
[2021-06-10] MEDS: Amitriptyline HCl 25 MG TAB PO SCH (20:50)
[2021-06-10] MEDS: Carvedilol 6.25 MG TAB PO SCH (20:50)
[2021-06-10] MEDS: Atorvastatin Calcium 10 MG TAB PO SCH (20:50)
[2021-06-10] MEDS: Latanoprost 0.005% Ophth Soln 2.5 ml Bottle EA EYE SCH (20:51)
[2021-06-11] MEDS: Levothyroxine 150 MCG TAB PO SCH (05:13)
[2021-06-11] MEDS: Fish Oil 1,000 MG CAP PO SCH (08:02)
[2021-06-11] MEDS: Carvedilol 6.25 MG TAB PO SCH ×2 (08:02→20:12)
[2021-06-11] MEDS: Cyanocobalamin (Vitamin B-12) 1,000 MCG TAB PO SCH (08:02)
[2021-06-11] MEDS: Lorazepam 0.5 MG TAB PO SCH ×2 (08:02→20:12)
[2021-06-11] MEDS: Multivitamin W/ Minerals 1 TAB PO SCH (08:02)
[2021-06-11] MEDS: Dabigatran 150 mg Capsule PO SCH ×2 (08:03→20:12)
[2021-06-11] MEDS: Lantus 1000 UNITS/10 ML VIAL SC SCH (08:03)
[2021-06-11] MEDS: Digoxin 0.125 MG TAB PO SCH (08:03)
[2021-06-11] MEDS: Aspirin 81 mg Enteric Coated Tablet PO SCH (08:03)
[2021-06-11] MEDS ORDERED: FLAXSEED OIL FS SCH (09:00)
[2021-06-11] MEDS ORDERED: Alogliptin 25 MG TAB PO SCH ×2 (09:00→15:00)
[2021-06-11] MEDS: Ferrous Sulfate 325 MG TAB PO SCH (15:01)
[2021-06-11] MEDS: Latanoprost 0.005% Ophth Soln 2.5 ml Bottle EA EYE SCH (20:10)
[2021-06-11] MEDS: Amitriptyline HCl 25 MG TAB PO SCH (20:12)
[2021-06-11] MEDS: Meloxicam 7.5 MG TAB PO SCH (20:12)
[2021-06-11] MEDS: Atorvastatin Calcium 10 MG TAB PO SCH (20:12)
[2021-06-11] MEDS: Donepezil HCl 10 MG TAB PO SCH (20:12)
[2021-06-11] MEDS: NAMZARIC PO SCH (20:13)
[2021-06-12] MEDS: Levothyroxine 150 MCG TAB PO SCH (05:41)
[2021-06-12] MEDS: Carvedilol 6.25 MG TAB PO SCH ×2 (08:16→20:31)
[2021-06-12] MEDS: Cyanocobalamin (Vitamin B-12) 1,000 MCG TAB PO SCH (08:16)
[2021-06-12] MEDS: Aspirin 81 mg Enteric Coated Tablet PO SCH (08:16)
[2021-06-12] MEDS: Fish Oil 1,000 MG CAP PO SCH (08:17)
[2021-06-12] MEDS: Ferrous Sulfate 325 MG TAB PO SCH (08:17)
[2021-06-12] MEDS: Digoxin 0.125 MG TAB PO SCH (08:17)
[2021-06-12] MEDS: Dabigatran 150 mg Capsule PO SCH ×2 (08:17→20:32)
[2021-06-12] MEDS: Lorazepam 0.5 MG TAB PO SCH ×2 (08:18→20:31)
[2021-06-12] MEDS: Multivitamin W/ Minerals 1 TAB PO SCH (08:18)
[2021-06-12] MEDS: Lantus 1000 UNITS/10 ML VIAL SC SCH (08:18)
[2021-06-12] MEDS: Polyethylene Glycol 3350 17 GM Packet PO SCH (08:18)
[2021-06-12] MEDS ORDERED: Alogliptin 25 MG TAB PO SCH ×5 (09:00)
[2021-06-12] MEDS: Meloxicam 7.5 MG TAB PO SCH (20:29)
[2021-06-12] MEDS: Atorvastatin Calcium 10 MG TAB PO SCH (20:31)
[2021-06-12] MEDS: Donepezil HCl 10 MG TAB PO SCH (20:32)
[2021-06-12] MEDS: Amitriptyline HCl 25 MG TAB PO SCH (20:33)
[2021-06-12] MEDS: Latanoprost 0.005% Ophth Soln 2.5 ml Bottle EA EYE SCH (20:33)
[2021-06-12] MEDS: NAMZARIC PO SCH (21:17)
[2021-06-13] MEDS: Levothyroxine 150 MCG TAB PO SCH (05:12)
[2021-06-13] MEDS: Carvedilol 6.25 MG TAB PO SCH ×2 (08:28→20:22)
[2021-06-13] MEDS: Aspirin 81 mg Enteric Coated Tablet PO SCH (08:28)
[2021-06-13] MEDS: Dabigatran 150 mg Capsule PO SCH ×2 (08:28→20:23)
[2021-06-13] MEDS: Cyanocobalamin (Vitamin B-12) 1,000 MCG TAB PO SCH (08:28)
[2021-06-13] MEDS: Digoxin 0.125 MG TAB PO SCH (08:28)
[2021-06-13] MEDS: Lantus 1000 UNITS/10 ML VIAL SC SCH (08:29)
[2021-06-13] MEDS: Fish Oil 1,000 MG CAP PO SCH (08:29)
[2021-06-13] MEDS: Ferrous Sulfate 325 MG TAB PO SCH (08:29)
[2021-06-13] MEDS: Lorazepam 0.5 MG TAB PO SCH ×2 (08:29→20:23)
[2021-06-13] MEDS: Multivitamin W/ Minerals 1 TAB PO SCH (08:30)
[2021-06-13] MEDS: Polyethylene Glycol 3350 17 GM Packet PO SCH (08:30)
[2021-06-13] MEDS ORDERED: Alogliptin 25 MG TAB PO SCH (09:00)
[2021-06-13] MEDS: Latanoprost 0.005% Ophth Soln 2.5 ml Bottle EA EYE SCH (20:22)
[2021-06-13] MEDS: Meloxicam 7.5 MG TAB PO SCH (20:23)
[2021-06-13] MEDS: Atorvastatin Calcium 10 MG TAB PO SCH (20:23)
[2021-06-13] MEDS: NAMZARIC PO SCH (20:24)
[2021-06-13] MEDS: Amitriptyline HCl 25 MG TAB PO SCH (20:24)
[2021-06-13] MEDS: Donepezil HCl 10 MG TAB PO SCH (20:24)
[2021-06-14] MEDS: Levothyroxine 150 MCG TAB PO SCH (06:01)
[2021-06-14] MEDS: Digoxin 0.125 MG TAB PO SCH (07:47)
[2021-06-14] MEDS: Polyethylene Glycol 3350 17 GM Packet PO SCH (07:48)
[2021-06-14] MEDS: Cyanocobalamin (Vitamin B-12) 1,000 MCG TAB PO SCH (07:48)
[2021-06-14] MEDS: Carvedilol 6.25 MG TAB PO SCH ×2 (07:48→21:08)
[2021-06-14] MEDS: Lorazepam 0.5 MG TAB PO SCH ×2 (07:49→21:09)
[2021-06-14] MEDS: Aspirin 81 mg Enteric Coated Tablet PO SCH (07:49)
[2021-06-14] MEDS: Dabigatran 150 mg Capsule PO SCH ×2 (07:49→21:08)
[2021-06-14] MEDS: Multivitamin W/ Minerals 1 TAB PO SCH (07:49)
[2021-06-14] MEDS: Ferrous Sulfate 325 MG TAB PO SCH (07:50)
[2021-06-14] MEDS: Fish Oil 1,000 MG CAP PO SCH (07:50)
[2021-06-14] MEDS: Lantus 1000 UNITS/10 ML VIAL SC SCH (07:51)
[2021-06-14] MEDS: Meloxicam 7.5 MG TAB PO SCH (21:08)
[2021-06-14] MEDS: Amitriptyline HCl 25 MG TAB PO SCH (21:09)
[2021-06-14] MEDS: Atorvastatin Calcium 10 MG TAB PO SCH (21:09)
[2021-06-14] MEDS: Donepezil HCl 10 MG TAB PO SCH ×2 (21:09→21:16)
[2021-06-14] MEDS: NAMZARIC PO SCH (21:12)
[2021-06-14] MEDS: Latanoprost 0.005% Ophth Soln 2.5 ml Bottle EA EYE SCH (21:12)
[2021-06-15] MEDS: Levothyroxine 150 MCG TAB PO SCH (06:19)
[2021-06-15] MEDS: Aspirin 81 mg Enteric Coated Tablet PO SCH (08:21)
[2021-06-15] MEDS: Ferrous Sulfate 325 MG TAB PO SCH (08:24)
[2021-06-15] MEDS: Dabigatran 150 mg Capsule PO SCH ×2 (08:24→20:07)
[2021-06-15] MEDS: Cyanocobalamin (Vitamin B-12) 1,000 MCG TAB PO SCH (08:24)
[2021-06-15] MEDS: Fish Oil 1,000 MG CAP PO SCH (08:24)
[2021-06-15] MEDS: Lorazepam 0.5 MG TAB PO SCH ×2 (08:24→20:07)
[2021-06-15] MEDS: Lantus 1000 UNITS/10 ML VIAL SC SCH (08:25)
[2021-06-15] MEDS: Multivitamin W/ Minerals 1 TAB PO SCH (08:25)
[2021-06-15] MEDS: Digoxin 0.125 MG TAB PO SCH (08:25)
[2021-06-15] MEDS: Carvedilol 6.25 MG TAB PO SCH ×2 (08:25→20:07)
[2021-06-15] MEDS: Polyethylene Glycol 3350 17 GM Packet PO SCH (08:26)
[2021-06-15] MEDS: Meloxicam 7.5 MG TAB PO SCH (20:07)
[2021-06-15] MEDS: Atorvastatin Calcium 10 MG TAB PO SCH (20:07)
[2021-06-15] MEDS: Latanoprost 0.005% Ophth Soln 2.5 ml Bottle EA EYE SCH (20:08)
[2021-06-15] MEDS: Amitriptyline HCl 25 MG TAB PO SCH (20:10)
[2021-06-15] MEDS: NAMZARIC PO SCH (20:10)
[2021-06-16 00:28] LABS: SARS-CoV-2 PCR by NAA Not Detected (NotDetected)
[2021-06-16] MEDS: Levothyroxine 150 MCG TAB PO SCH (05:29)
[2021-06-16] MEDS: Aspirin 81 mg Enteric Coated Tablet PO SCH (08:19)
[2021-06-16] MEDS: Carvedilol 6.25 MG TAB PO SCH ×2 (08:19→20:10)
[2021-06-16] MEDS: Dabigatran 150 mg Capsule PO SCH ×2 (08:20→20:10)
[2021-06-16] MEDS: Digoxin 0.125 MG TAB PO SCH (08:20)
[2021-06-16] MEDS: Cyanocobalamin (Vitamin B-12) 1,000 MCG TAB PO SCH (08:20)
[2021-06-16] MEDS: Ferrous Sulfate 325 MG TAB PO SCH (08:21)
[2021-06-16] MEDS: Fish Oil 1,000 MG CAP PO SCH (08:21)
[2021-06-16] MEDS: Lantus 1000 UNITS/10 ML VIAL SC SCH (08:21)
[2021-06-16] MEDS: Polyethylene Glycol 3350 17 GM Packet PO SCH (08:22)
[2021-06-16] MEDS: Multivitamin W/ Minerals 1 TAB PO SCH (08:22)
[2021-06-16] MEDS: Lorazepam 0.5 MG TAB PO SCH ×2 (08:22→20:09)
[2021-06-16] MEDS: Meloxicam 7.5 MG TAB PO SCH (20:10)
[2021-06-16] MEDS: Amitriptyline HCl 25 MG TAB PO SCH (20:10)
[2021-06-16] MEDS: Atorvastatin Calcium 10 MG TAB PO SCH (20:10)
[2021-06-16] MEDS: Latanoprost 0.005% Ophth Soln 2.5 ml Bottle EA EYE SCH (20:10)
[2021-06-16] MEDS: NAMZARIC PO SCH (20:11)
[2021-06-17] MEDS: Levothyroxine 150 MCG TAB PO SCH (05:07)
[2021-06-17] MEDS: Aspirin 81 mg Enteric Coated Tablet PO SCH (08:11)
[2021-06-17] MEDS: Carvedilol 6.25 MG TAB PO SCH ×2 (08:11→20:04)
[2021-06-17] MEDS: Digoxin 0.125 MG TAB PO SCH ×2 (08:12→08:26)
[2021-06-17] MEDS: Dabigatran 150 mg Capsule PO SCH ×2 (08:12→20:04)
[2021-06-17] MEDS: Cyanocobalamin (Vitamin B-12) 1,000 MCG TAB PO SCH (08:12)
[2021-06-17] MEDS: Lorazepam 0.5 MG TAB PO SCH ×2 (08:14→20:04)
[2021-06-17] MEDS: Lantus 1000 UNITS/10 ML VIAL SC SCH (08:14)
[2021-06-17] MEDS: Multivitamin W/ Minerals 1 TAB PO SCH (08:14)
[2021-06-17] MEDS: Fish Oil 1,000 MG CAP PO SCH (08:14)
[2021-06-17] MEDS: Ferrous Sulfate 325 MG TAB PO SCH (08:14)
[2021-06-17] MEDS: Polyethylene Glycol 3350 17 GM Packet PO SCH (08:15)
[2021-06-17] MEDS: Amitriptyline HCl 25 MG TAB PO SCH (20:04)
[2021-06-17] MEDS: Atorvastatin Calcium 10 MG TAB PO SCH (20:04)
[2021-06-17] MEDS: Meloxicam 7.5 MG TAB PO SCH (20:04)
[2021-06-17] MEDS: Latanoprost 0.005% Ophth Soln 2.5 ml Bottle EA EYE SCH (20:05)
[2021-06-17] MEDS: NAMZARIC PO SCH (20:05)
[2021-06-18] MEDS: Levothyroxine 150 MCG TAB PO SCH (05:34)
[2021-06-18 06:31] LABS: #Basophils 0.1 thou/uL (0.0-0.2); #Eosinphils 0.5 thou/uL (0.0-0.7); #Lymphocytes 3.2 thou/uL (1.20-3.40); #Monocytes 0.5 thou/uL (0.11-0.59); #Neutrophils 4.6 thou/uL (1.40-6.50); %Basophils 1.2 % (0.0-1.0); %Eosinophils 5.9 % (0.0-10.0); %Lymphocytes 36.2 % (21.0-51.0); %Monocytes 5.1 % (0.0-10.0); %Neutrophils 51.7 % (42.0-75.0); Mean Corpuscular HGB CONC 31.9 g/dL (32.0-36.0); Mean Corpuscular Hemoglobin 30.5 pg (27.0-31.0); Mean Corpuscular Volume 95.4 fL (78.0-98.0); Mean Platelet Volume 6.3 fL (7.4-10.4); Platelet Count 228 thou/uL (130-400); RBC Distribution Width 13.3 % (11.5-14.5); White Blood Cell (WBC) Count 8.9 thou/uL (4.8-10.8)
[2021-06-18 06:49] LABS: ALT (SGPT) 30 U/L (8-55); AST (SGOT) 31 U/L (5-34); Albumin 3.7 g/dL (3.4-4.8); Alkaline Phosphatase 64 U/L (40-110); Anion Gap 12 mmol/L (10-20); BUN (Urea Nitrogen) 22 mg/dL (8.4-25.7); Bilirubin, Total 1.5 mg/dL (0.2-1.2); Calc. Creatinine Clearance 82 mL/min (70-130); Calcium 9.1 mg/dL (7.8-10.44); Carbon Dioxide 24 mmol/L (23-31); Chloride 107 mmol/L (98-107); Globulin 2.7 g/dL (2.4-3.5); Glucose 98 mg/dL (83-110); Potassium 4.2 mmol/L (3.5-5.1); Protein, Total 6.4 g/dL (5.8-8.1); Sodium 139 mmol/L (136-145)
[2021-06-18] MEDS: Carvedilol 6.25 MG TAB PO SCH ×2 (08:05→20:02)
[2021-06-18] MEDS: Aspirin 81 mg Enteric Coated Tablet PO SCH (08:05)
[2021-06-18] MEDS: Cyanocobalamin (Vitamin B-12) 1,000 MCG TAB PO SCH (08:06)
[2021-06-18] MEDS: Dabigatran 150 mg Capsule PO SCH ×2 (08:07→20:02)
[2021-06-18] MEDS: Digoxin 0.125 MG TAB PO SCH (08:07)
[2021-06-18] MEDS: Ferrous Sulfate 325 MG TAB PO SCH (08:09)
[2021-06-18] MEDS: Multivitamin W/ Minerals 1 TAB PO SCH (08:09)
[2021-06-18] MEDS: Lorazepam 0.5 MG TAB PO SCH ×2 (08:09→20:01)
[2021-06-18] MEDS: Fish Oil 1,000 MG CAP PO SCH (08:10)
[2021-06-18] MEDS: Lantus 1000 UNITS/10 ML VIAL SC SCH (08:10)
[2021-06-18] MEDS: Polyethylene Glycol 3350 17 GM Packet PO SCH (08:11)
[2021-06-18] MEDS: Latanoprost 0.005% Ophth Soln 2.5 ml Bottle EA EYE SCH (20:01)
[2021-06-18] MEDS: Atorvastatin Calcium 10 MG TAB PO SCH (20:02)
[2021-06-18] MEDS: Amitriptyline HCl 25 MG TAB PO SCH (20:02)
[2021-06-18] MEDS: Meloxicam 7.5 MG TAB PO SCH (20:02)
[2021-06-18] MEDS: NAMZARIC PO SCH (20:02)
[2021-06-19] MEDS: Levothyroxine 150 MCG TAB PO SCH (05:55)
[2021-06-19] MEDS: Fish Oil 1,000 MG CAP PO SCH (09:00)
[2021-06-19] MEDS: Ferrous Sulfate 325 MG TAB PO SCH (09:00)
[2021-06-19] MEDS: Carvedilol 6.25 MG TAB PO SCH ×2 (09:01→21:08)
[2021-06-19] MEDS: Multivitamin W/ Minerals 1 TAB PO SCH (09:02)
[2021-06-19] MEDS: Lorazepam 0.5 MG TAB PO SCH ×2 (09:02→21:05)
[2021-06-19] MEDS: Aspirin 81 mg Enteric Coated Tablet PO SCH (09:02)
[2021-06-19] MEDS: Digoxin 0.125 MG TAB PO SCH (09:03)
[2021-06-19] MEDS: Polyethylene Glycol 3350 17 GM Packet PO SCH (09:03)
[2021-06-19] MEDS: Dabigatran 150 mg Capsule PO SCH ×2 (09:03→21:05)
[2021-06-19] MEDS: Lantus 1000 UNITS/10 ML VIAL SC SCH (09:07)
[2021-06-19] MEDS: Cyanocobalamin (Vitamin B-12) 1,000 MCG TAB PO SCH (09:07)
[2021-06-19] MEDS: Meloxicam 7.5 MG TAB PO SCH (21:03)
[2021-06-19] MEDS: Atorvastatin Calcium 10 MG TAB PO SCH (21:05)
[2021-06-19] MEDS: Latanoprost 0.005% Ophth Soln 2.5 ml Bottle EA EYE SCH (21:09)
[2021-06-19] MEDS: Amitriptyline HCl 25 MG TAB PO SCH (21:09)
[2021-06-19] MEDS: NAMZARIC PO SCH (21:09)
[2021-06-20] MEDS: Levothyroxine 150 MCG TAB PO SCH (06:01)
[2021-06-20] MEDS: Cyanocobalamin (Vitamin B-12) 1,000 MCG TAB PO SCH (09:55)
[2021-06-20] MEDS: Lorazepam 0.5 MG TAB PO SCH ×2 (09:56→21:00)
[2021-06-20] MEDS: Aspirin 81 mg Enteric Coated Tablet PO SCH (09:56)
[2021-06-20] MEDS: Fish Oil 1,000 MG CAP PO SCH (09:56)
[2021-06-20] MEDS: Multivitamin W/ Minerals 1 TAB PO SCH (09:57)
[2021-06-20] MEDS: Ferrous Sulfate 325 MG TAB PO SCH (09:57)
[2021-06-20] MEDS: Dabigatran 150 mg Capsule PO SCH ×2 (09:58→21:00)
[2021-06-20] MEDS: Lantus 1000 UNITS/10 ML VIAL SC SCH (09:59)
[2021-06-20] MEDS: Digoxin 0.125 MG TAB PO SCH (10:01)
[2021-06-20] MEDS: Polyethylene Glycol 3350 17 GM Packet PO SCH (10:01)
[2021-06-20] MEDS: Carvedilol 6.25 MG TAB PO SCH ×2 (10:01→21:00)
[2021-06-20] MEDS: Latanoprost 0.005% Ophth Soln 2.5 ml Bottle EA EYE SCH (20:59)
[2021-06-20] MEDS: Meloxicam 7.5 MG TAB PO SCH (21:00)
[2021-06-20] MEDS: Atorvastatin Calcium 10 MG TAB PO SCH (21:00)
[2021-06-20] MEDS: Amitriptyline HCl 25 MG TAB PO SCH (21:00)
[2021-06-20] MEDS: NAMZARIC PO SCH (21:01)
[2021-06-21] MEDS: Levothyroxine 150 MCG TAB PO SCH (05:51)
[2021-06-21] MEDS: Polyethylene Glycol 3350 17 GM Packet PO SCH (08:26)
[2021-06-21] MEDS: Dabigatran 150 mg Capsule PO SCH ×2 (08:27→20:46)
[2021-06-21] MEDS: Lorazepam 0.5 MG TAB PO SCH ×2 (08:27→20:46)
[2021-06-21] MEDS: Cyanocobalamin (Vitamin B-12) 1,000 MCG TAB PO SCH (08:27)
[2021-06-21] MEDS: Fish Oil 1,000 MG CAP PO SCH (08:28)
[2021-06-21] MEDS: Carvedilol 6.25 MG TAB PO SCH ×2 (08:28→20:44)
[2021-06-21] MEDS: Multivitamin W/ Minerals 1 TAB PO SCH (08:28)
[2021-06-21] MEDS: Ferrous Sulfate 325 MG TAB PO SCH (08:29)
[2021-06-21] MEDS: Digoxin 0.125 MG TAB PO SCH (08:29)
[2021-06-21] MEDS: Lantus 1000 UNITS/10 ML VIAL SC SCH (08:29)
[2021-06-21] MEDS: Aspirin 81 mg Enteric Coated Tablet PO SCH (08:29)
[2021-06-21] MEDS: Latanoprost 0.005% Ophth Soln 2.5 ml Bottle EA EYE SCH (20:43)
[2021-06-21] MEDS: Amitriptyline HCl 25 MG TAB PO SCH (20:44)
[2021-06-21] MEDS: Atorvastatin Calcium 10 MG TAB PO SCH (20:44)
[2021-06-21] MEDS: Meloxicam 7.5 MG TAB PO SCH (20:44)
[2021-06-21] MEDS: NAMZARIC PO SCH (20:48)
[2021-06-22] MEDS: Levothyroxine 150 MCG TAB PO SCH (05:09)
[2021-06-22] MEDS: Polyethylene Glycol 3350 17 GM Packet PO SCH (08:04)
[2021-06-22] MEDS: Dabigatran 150 mg Capsule PO SCH ×2 (08:05→21:08)
[2021-06-22] MEDS: Cyanocobalamin (Vitamin B-12) 1,000 MCG TAB PO SCH (08:05)
[2021-06-22] MEDS: Multivitamin W/ Minerals 1 TAB PO SCH (08:05)
[2021-06-22] MEDS: Lorazepam 0.5 MG TAB PO SCH ×2 (08:05→21:09)
[2021-06-22] MEDS: Fish Oil 1,000 MG CAP PO SCH (08:06)
[2021-06-22] MEDS: Ferrous Sulfate 325 MG TAB PO SCH (08:06)
[2021-06-22] MEDS: Digoxin 0.125 MG TAB PO SCH (08:06)
[2021-06-22] MEDS: Aspirin 81 mg Enteric Coated Tablet PO SCH (08:07)
[2021-06-22] MEDS: Lantus 1000 UNITS/10 ML VIAL SC SCH (08:08)
[2021-06-22] MEDS: Carvedilol 25 MG TAB PO SCH ×2 (08:08→21:08)
[2021-06-22] MEDS: Latanoprost 0.005% Ophth Soln 2.5 ml Bottle EA EYE SCH (21:08)
[2021-06-22] MEDS: Meloxicam 7.5 MG TAB PO SCH (21:09)
[2021-06-22] MEDS: Amitriptyline HCl 25 MG TAB PO SCH (21:09)
[2021-06-22] MEDS: Atorvastatin Calcium 10 MG TAB PO SCH (21:10)
[2021-06-22] MEDS: NAMZARIC PO SCH (21:10)
[2021-06-23] MEDS: Levothyroxine 150 MCG TAB PO SCH (06:03)
[2021-06-23] MEDS: Polyethylene Glycol 3350 17 GM Packet PO SCH (09:10)
[2021-06-23] MEDS: Lantus 1000 UNITS/10 ML VIAL SC SCH (09:11)
[2021-06-23] MEDS: Aspirin 81 mg Enteric Coated Tablet PO SCH (09:11)
[2021-06-23] MEDS: Cyanocobalamin (Vitamin B-12) 1,000 MCG TAB PO SCH (09:11)
[2021-06-23] MEDS: Multivitamin W/ Minerals 1 TAB PO SCH (09:13)
[2021-06-23] MEDS: Fish Oil 1,000 MG CAP PO SCH (09:13)
[2021-06-23] MEDS: Dabigatran 150 mg Capsule PO SCH ×2 (09:13→20:19)
[2021-06-23] MEDS: Ferrous Sulfate 325 MG TAB PO SCH (09:18)
[2021-06-23] MEDS: Lorazepam 0.5 MG TAB PO SCH ×2 (09:18→20:19)
[2021-06-23] MEDS: Digoxin 0.125 MG TAB PO SCH (10:39)
[2021-06-23] MEDS: Carvedilol 25 MG TAB PO SCH ×2 (10:42→20:20)
[2021-06-23] MEDS ORDERED: Lorazepam 0.5 MG TAB ONE (20:09)
[2021-06-23] MEDS: Meloxicam 7.5 MG TAB PO SCH (20:18)
[2021-06-23] MEDS: Amitriptyline HCl 25 MG TAB PO SCH (20:19)
[2021-06-23] MEDS: Atorvastatin Calcium 10 MG TAB PO SCH (20:20)
[2021-06-23] MEDS: NAMZARIC PO SCH (20:20)
[2021-06-23] MEDS: Latanoprost 0.005% Ophth Soln 2.5 ml Bottle EA EYE SCH (20:21)
[2021-06-24] MEDS: Levothyroxine 150 MCG TAB PO SCH (06:05)
[2021-06-24] MEDS: Lantus 1000 UNITS/10 ML VIAL SC SCH (07:48)
[2021-06-24] MEDS: Polyethylene Glycol 3350 17 GM Packet PO SCH (07:48)
[2021-06-24] MEDS: Cyanocobalamin (Vitamin B-12) 1,000 MCG TAB PO SCH (07:50)
[2021-06-24] MEDS: Multivitamin W/ Minerals 1 TAB PO SCH (07:50)
[2021-06-24] MEDS: Fish Oil 1,000 MG CAP PO SCH (07:51)
[2021-06-24] MEDS: Aspirin 81 mg Enteric Coated Tablet PO SCH (07:51)
[2021-06-24] MEDS: Digoxin 0.125 MG TAB PO SCH (07:52)
[2021-06-24] MEDS: Dabigatran 150 mg Capsule PO SCH ×2 (07:52→20:22)
[2021-06-24] MEDS: Ferrous Sulfate 325 MG TAB PO SCH (07:52)
[2021-06-24] MEDS: Carvedilol 25 MG TAB PO SCH ×2 (07:53→20:21)
[2021-06-24] MEDS: Lorazepam 0.5 MG TAB PO SCH ×2 (10:04→20:22)
[2021-06-24 15:41] LABS: SARS-CoV-2 PCR by NAA Not Detected (NotDetected)
[2021-06-24] MEDS: NAMZARIC PO SCH (20:20)
[2021-06-24] MEDS: Amitriptyline HCl 25 MG TAB PO SCH (20:20)
[2021-06-24] MEDS: Atorvastatin Calcium 10 MG TAB PO SCH (20:21)
[2021-06-24] MEDS: Meloxicam 7.5 MG TAB PO SCH (20:22)
[2021-06-24] MEDS: Latanoprost 0.005% Ophth Soln 2.5 ml Bottle EA EYE SCH (20:22)
[2021-06-25] MEDS: Levothyroxine 150 MCG TAB PO SCH (06:01)
[2021-06-25] MEDS: Aspirin 81 mg Enteric Coated Tablet PO SCH (08:08)
[2021-06-25] MEDS: Ferrous Sulfate 325 MG TAB PO SCH (08:08)
[2021-06-25] MEDS: Cyanocobalamin (Vitamin B-12) 1,000 MCG TAB PO SCH (08:08)
[2021-06-25] MEDS: Digoxin 0.125 MG TAB PO SCH (08:08)
[2021-06-25] MEDS: Multivitamin W/ Minerals 1 TAB PO SCH (08:08)
[2021-06-25] MEDS: Lorazepam 0.5 MG TAB PO SCH ×2 (08:09→20:44)
[2021-06-25] MEDS: Dabigatran 150 mg Capsule PO SCH ×2 (08:09→20:43)
[2021-06-25] MEDS: Fish Oil 1,000 MG CAP PO SCH (08:09)
[2021-06-25] MEDS: Carvedilol 25 MG TAB PO SCH ×2 (08:09→20:44)
[2021-06-25] MEDS: Lantus 1000 UNITS/10 ML VIAL SC SCH (08:09)
[2021-06-25] MEDS: Polyethylene Glycol 3350 17 GM Packet PO SCH (08:10)
[2021-06-25] MEDS: Latanoprost 0.005% Ophth Soln 2.5 ml Bottle EA EYE SCH (20:43)
[2021-06-25] MEDS: Meloxicam 7.5 MG TAB PO SCH (20:43)
[2021-06-25] MEDS: NAMZARIC PO SCH (20:43)
[2021-06-25] MEDS: Atorvastatin Calcium 10 MG TAB PO SCH (20:44)
[2021-06-25] MEDS: Amitriptyline HCl 25 MG TAB PO SCH (20:44)
[2021-06-26] MEDS: Levothyroxine 150 MCG TAB PO SCH (06:02)
[2021-06-26] MEDS: Polyethylene Glycol 3350 17 GM Packet PO SCH (07:55)
[2021-06-26] MEDS: Fish Oil 1,000 MG CAP PO SCH (07:56)
[2021-06-26] MEDS: Cyanocobalamin (Vitamin B-12) 1,000 MCG TAB PO SCH (07:56)
[2021-06-26] MEDS: Multivitamin W/ Minerals 1 TAB PO SCH (07:56)
[2021-06-26] MEDS: Aspirin 81 mg Enteric Coated Tablet PO SCH (07:56)
[2021-06-26] MEDS: Digoxin 0.125 MG TAB PO SCH (07:57)
[2021-06-26] MEDS: Lorazepam 0.5 MG TAB PO SCH ×2 (07:57→21:51)
[2021-06-26] MEDS: Dabigatran 150 mg Capsule PO SCH ×2 (07:57→21:12)
[2021-06-26] MEDS: Ferrous Sulfate 325 MG TAB PO SCH (07:57)
[2021-06-26] MEDS: Carvedilol 25 MG TAB PO SCH ×2 (07:58→21:12)
[2021-06-26] MEDS: Lantus 1000 UNITS/10 ML VIAL SC SCH (08:04)
[2021-06-26] MEDS ORDERED: Lorazepam 0.5 MG TAB ONE (20:54)
[2021-06-26] MEDS: Latanoprost 0.005% Ophth Soln 2.5 ml Bottle EA EYE SCH (21:09)
[2021-06-26] MEDS: Atorvastatin Calcium 10 MG TAB PO SCH (21:09)
[2021-06-26] MEDS: Meloxicam 7.5 MG TAB PO SCH (21:10)
[2021-06-26] MEDS: Amitriptyline HCl 25 MG TAB PO SCH (21:12)
[2021-06-26] MEDS: NAMZARIC PO SCH (21:25)
[2021-06-27] MEDS: Levothyroxine 150 MCG TAB PO SCH (06:11)
[2021-06-27] MEDS: Carvedilol 25 MG TAB PO SCH ×2 (07:56→21:30)
[2021-06-27] MEDS: Ferrous Sulfate 325 MG TAB PO SCH (07:58)
[2021-06-27] MEDS: Fish Oil 1,000 MG CAP PO SCH (07:59)
[2021-06-27] MEDS: Lantus 1000 UNITS/10 ML VIAL SC SCH (07:59)
[2021-06-27] MEDS: Aspirin 81 mg Enteric Coated Tablet PO SCH (08:00)
[2021-06-27] MEDS: Cyanocobalamin (Vitamin B-12) 1,000 MCG TAB PO SCH (08:00)
[2021-06-27] MEDS: Dabigatran 150 mg Capsule PO SCH ×2 (08:00→21:25)
[2021-06-27] MEDS: Digoxin 0.125 MG TAB PO SCH (08:01)
[2021-06-27] MEDS: Polyethylene Glycol 3350 17 GM Packet PO SCH (08:02)
[2021-06-27] MEDS: Lorazepam 0.5 MG TAB PO SCH ×2 (08:02→21:25)
[2021-06-27] MEDS: Multivitamin W/ Minerals 1 TAB PO SCH (08:02)
[2021-06-27] MEDS: Atorvastatin Calcium 10 MG TAB PO SCH (21:25)
[2021-06-27] MEDS: Amitriptyline HCl 25 MG TAB PO SCH (21:25)
[2021-06-27] MEDS: Meloxicam 7.5 MG TAB PO SCH (21:26)
[2021-06-27] MEDS: Latanoprost 0.005% Ophth Soln 2.5 ml Bottle EA EYE SCH (21:27)
[2021-06-27] MEDS: NAMZARIC PO SCH (21:28)
[2021-06-28] MEDS: Levothyroxine 150 MCG TAB PO SCH (05:31)
[2021-06-28] MEDS ORDERED: Milk Of Magnesia 30 ML UDCUP PO PRN (06:42)
[2021-06-28] MEDS: Carvedilol 25 MG TAB PO SCH ×2 (08:43→20:37)
[2021-06-28] MEDS: Aspirin 81 mg Enteric Coated Tablet PO SCH (08:43)
[2021-06-28] MEDS: Dabigatran 150 mg Capsule PO SCH ×2 (08:44→20:35)
[2021-06-28] MEDS: Digoxin 0.125 MG TAB PO SCH (08:44)
[2021-06-28] MEDS: Cyanocobalamin (Vitamin B-12) 1,000 MCG TAB PO SCH (08:45)
[2021-06-28] MEDS: Ferrous Sulfate 325 MG TAB PO SCH (08:45)
[2021-06-28] MEDS: Fish Oil 1,000 MG CAP PO SCH (08:45)
[2021-06-28] MEDS: Lorazepam 0.5 MG TAB PO SCH ×2 (08:45→20:35)
[2021-06-28] MEDS: Multivitamin W/ Minerals 1 TAB PO SCH (08:45)
[2021-06-28] MEDS: Lantus 1000 UNITS/10 ML VIAL SC SCH (08:49)
[2021-06-28] MEDS: Polyethylene Glycol 3350 17 GM Packet PO SCH (08:53)
[2021-06-28] MEDS ORDERED: hydrOXYzine 25 MG TAB PO PRN (18:32)
[2021-06-28] MEDS: NAMZARIC PO SCH (20:34)
[2021-06-28] MEDS: Latanoprost 0.005% Ophth Soln 2.5 ml Bottle EA EYE SCH (20:35)
[2021-06-28] MEDS: Atorvastatin Calcium 10 MG TAB PO SCH (20:35)
[2021-06-28] MEDS: Meloxicam 7.5 MG TAB PO SCH (20:36)
[2021-06-28] MEDS: Amitriptyline HCl 25 MG TAB PO SCH (20:36)
[2021-06-29 05:20] LABS: #Basophils 0.1 thou/uL (0.0-0.2); #Eosinphils 0.5 thou/uL (0.0-0.7); #Lymphocytes 4.2 thou/uL (1.20-3.40); #Monocytes 0.7 thou/uL (0.11-0.59); #Neutrophils 3.6 thou/uL (1.40-6.50); %Basophils 0.7 % (0.0-1.0); %Lymphocytes 46.8 % (21.0-51.0); %Monocytes 7.3 % (0.0-10.0); %Neutrophils 40.1 % (42.0-75.0); Hemoglobin 14.7 g/dL (14.0-18.0); Mean Corpuscular Hemoglobin 30.4 pg (27.0-31.0); Mean Corpuscular Volume 94.7 fL (78.0-98.0); Mean Platelet Volume 6.8 fL (7.4-10.4); Platelet Count 191 thou/uL (130-400); RBC Distribution Width 13.7 % (11.5-14.5); Red Blood Cell (RBC) Count 4.83 mill/uL (4.70-6.10)
[2021-06-29 05:32] LABS: Anion Gap 15 mmol/L (10-20); BUN (Urea Nitrogen) 18 mg/dL (8.4-25.7); Calc. Creatinine Clearance 79 mL/min (70-130); Calcium 8.9 mg/dL (7.8-10.44); Carbon Dioxide 23 mmol/L (23-31); Chloride 105 mmol/L (98-107); Glucose 107 mg/dL (83-110); Potassium 3.9 mmol/L (3.5-5.1); Sodium 139 mmol/L (136-145)
[2021-06-29] MEDS: Lorazepam 0.5 MG TAB PO SCH ×2 (08:46→20:58)
[2021-06-29] MEDS: Dabigatran 150 mg Capsule PO SCH ×2 (08:50→20:58)
[2021-06-29] MEDS: Multivitamin W/ Minerals 1 TAB PO SCH (08:51)
[2021-06-29] MEDS: Carvedilol 25 MG TAB PO SCH ×2 (08:51→20:59)
[2021-06-29] MEDS: Ferrous Sulfate 325 MG TAB PO SCH (08:51)
[2021-06-29] MEDS: Fish Oil 1,000 MG CAP PO SCH (08:51)
[2021-06-29] MEDS: Aspirin 81 mg Enteric Coated Tablet PO SCH (08:52)
[2021-06-29] MEDS: Cyanocobalamin (Vitamin B-12) 1,000 MCG TAB PO SCH (09:05)
[2021-06-29] MEDS: Lantus 1000 UNITS/10 ML VIAL SC SCH (09:05)
[2021-06-29] MEDS: Polyethylene Glycol 3350 17 GM Packet PO SCH (09:05)
[2021-06-29] MEDS: Digoxin 0.125 MG TAB PO SCH (10:14)
[2021-06-29] MEDS: Atorvastatin Calcium 10 MG TAB PO SCH (20:58)
[2021-06-29] MEDS: Amitriptyline HCl 25 MG TAB PO SCH (20:58)
[2021-06-29] MEDS: Latanoprost 0.005% Ophth Soln 2.5 ml Bottle EA EYE SCH (21:01)
[2021-06-29] MEDS: NAMZARIC PO SCH (22:00)
[2021-06-29] MEDS: Meloxicam 7.5 MG TAB PO SCH (22:00)
[2021-06-30] MEDS: Levothyroxine 150 MCG TAB PO SCH (05:24)
[2021-06-30] MEDS: Cyanocobalamin (Vitamin B-12) 1,000 MCG TAB PO SCH (09:05)
[2021-06-30] MEDS: Ferrous Sulfate 325 MG TAB PO SCH (09:05)
[2021-06-30] MEDS: Lorazepam 0.5 MG TAB PO SCH ×2 (09:06→20:19)
[2021-06-30] MEDS: Dabigatran 150 mg Capsule PO SCH ×2 (09:06→20:20)
[2021-06-30] MEDS: Multivitamin W/ Minerals 1 TAB PO SCH (09:06)
[2021-06-30] MEDS: Fish Oil 1,000 MG CAP PO SCH (09:06)
[2021-06-30] MEDS: Aspirin 81 mg Enteric Coated Tablet PO SCH (09:06)
[2021-06-30] MEDS: Lantus 1000 UNITS/10 ML VIAL SC SCH (09:07)
[2021-06-30] MEDS: Polyethylene Glycol 3350 17 GM Packet PO SCH (09:39)
[2021-06-30] MEDS: Digoxin 0.125 MG TAB PO SCH (09:40)
[2021-06-30] MEDS: Carvedilol 25 MG TAB PO SCH ×2 (09:58→20:20)
[2021-06-30] MEDS: Amitriptyline HCl 25 MG TAB PO SCH (20:19)
[2021-06-30] MEDS: Atorvastatin Calcium 10 MG TAB PO SCH (20:19)
[2021-06-30] MEDS: Meloxicam 7.5 MG TAB PO SCH (20:20)
[2021-06-30] MEDS: Latanoprost 0.005% Ophth Soln 2.5 ml Bottle EA EYE SCH (20:21)
[2021-06-30] MEDS: NAMZARIC PO SCH (20:22)
[2021-07-01] MEDS: Levothyroxine 150 MCG TAB PO SCH ×2 (05:10→07:15)
[2021-07-01] MEDS: Aspirin 81 mg Enteric Coated Tablet PO SCH (08:40)
[2021-07-01] MEDS: Carvedilol 25 MG TAB PO SCH ×2 (08:41→20:24)
[2021-07-01] MEDS: Cyanocobalamin (Vitamin B-12) 1,000 MCG TAB PO SCH (08:42)
[2021-07-01] MEDS: Dabigatran 150 mg Capsule PO SCH ×2 (08:43→20:25)
[2021-07-01] MEDS: Digoxin 0.125 MG TAB PO SCH (08:43)
[2021-07-01] MEDS: Fish Oil 1,000 MG CAP PO SCH (08:44)
[2021-07-01] MEDS: Lorazepam 0.5 MG TAB PO SCH ×2 (08:44→20:27)
[2021-07-01] MEDS: Ferrous Sulfate 325 MG TAB PO SCH (08:44)
[2021-07-01] MEDS: Lantus 1000 UNITS/10 ML VIAL SC SCH (08:44)
[2021-07-01] MEDS: Polyethylene Glycol 3350 17 GM Packet PO SCH (08:45)
[2021-07-01] MEDS: Multivitamin W/ Minerals 1 TAB PO SCH (08:45)
[2021-07-01] MEDS: Amitriptyline HCl 25 MG TAB PO SCH (20:23)
[2021-07-01] MEDS: Atorvastatin Calcium 10 MG TAB PO SCH (20:24)
[2021-07-01] MEDS: Latanoprost 0.005% Ophth Soln 2.5 ml Bottle EA EYE SCH (20:26)
[2021-07-01] MEDS: Meloxicam 7.5 MG TAB PO SCH (20:29)
[2021-07-01] MEDS: NAMZARIC PO SCH (20:33)
[2021-07-02] MEDS: Levothyroxine 150 MCG TAB PO SCH (06:23)
[2021-07-02] MEDS: Dabigatran 150 mg Capsule PO SCH ×2 (08:27→20:00)
[2021-07-02] MEDS: Cyanocobalamin (Vitamin B-12) 1,000 MCG TAB PO SCH (08:27)
[2021-07-02] MEDS: Aspirin 81 mg Enteric Coated Tablet PO SCH (08:27)
[2021-07-02] MEDS: Multivitamin W/ Minerals 1 TAB PO SCH (08:27)
[2021-07-02] MEDS: Lorazepam 0.5 MG TAB PO SCH ×2 (08:27→20:02)
[2021-07-02] MEDS: Digoxin 0.125 MG TAB PO SCH (08:28)
[2021-07-02] MEDS: Fish Oil 1,000 MG CAP PO SCH (08:28)
[2021-07-02] MEDS: Ferrous Sulfate 325 MG TAB PO SCH (08:29)
[2021-07-02] MEDS: Polyethylene Glycol 3350 17 GM Packet PO SCH (08:29)
[2021-07-02] MEDS: Lantus 1000 UNITS/10 ML VIAL SC SCH (08:29)
[2021-07-02] MEDS: Carvedilol 25 MG TAB PO SCH ×2 (08:29→22:12)
[2021-07-02 10:02] VITALS: BMI 32.4
[2021-07-02] MEDS: Amitriptyline HCl 25 MG TAB PO SCH (20:00)
[2021-07-02] MEDS: Meloxicam 7.5 MG TAB PO SCH (20:01)
[2021-07-02] MEDS: NAMZARIC PO SCH (20:01)
[2021-07-02] MEDS: Atorvastatin Calcium 10 MG TAB PO SCH (20:01)
[2021-07-02] MEDS: Latanoprost 0.005% Ophth Soln 2.5 ml Bottle EA EYE SCH (20:01)
[2021-07-03 00:38] LABS: SARS-CoV-2 PCR by NAA Not Detected (NotDetected)
[2021-07-03] MEDS: Levothyroxine 150 MCG TAB PO SCH (05:21)
[2021-07-03 07:04] LABS: Anion Gap 13 mmol/L (10-20); BUN (Urea Nitrogen) 16 mg/dL (8.4-25.7); Calc. Creatinine Clearance 81 mL/min (70-130); Calcium 8.7 mg/dL (7.8-10.44); Carbon Dioxide 24 mmol/L (23-31); Chloride 105 mmol/L (98-107); Glucose 118 mg/dL (83-110); Potassium 3.9 mmol/L (3.5-5.1); Sodium 138 mmol/L (136-145)
[2021-07-03] MEDS: Ferrous Sulfate 325 MG TAB PO SCH (09:00)
[2021-07-03] MEDS: Dabigatran 150 mg Capsule PO SCH ×2 (09:17→20:59)
[2021-07-03] MEDS: Multivitamin W/ Minerals 1 TAB PO SCH (09:17)
[2021-07-03] MEDS: Aspirin 81 mg Enteric Coated Tablet PO SCH (09:18)
[2021-07-03] MEDS: Fish Oil 1,000 MG CAP PO SCH (09:18)
[2021-07-03] MEDS: Lorazepam 0.5 MG TAB PO SCH ×2 (09:19→21:00)
[2021-07-03] MEDS: Polyethylene Glycol 3350 17 GM Packet PO SCH (09:21)
[2021-07-03] MEDS: Cyanocobalamin (Vitamin B-12) 1,000 MCG TAB PO SCH (09:22)
[2021-07-03] MEDS: Lantus 1000 UNITS/10 ML VIAL SC SCH (09:29)
[2021-07-03] MEDS: Carvedilol 25 MG TAB PO SCH ×2 (09:58→21:04)
[2021-07-03] MEDS: Digoxin 0.125 MG TAB PO SCH (09:58)
[2021-07-03] MEDS: Meloxicam 7.5 MG TAB PO SCH (20:59)
[2021-07-03] MEDS: Atorvastatin Calcium 10 MG TAB PO SCH (20:59)
[2021-07-03] MEDS: Amitriptyline HCl 25 MG TAB PO SCH (20:59)
[2021-07-03] MEDS: NAMZARIC PO SCH (21:01)
[2021-07-03] MEDS: Latanoprost 0.005% Ophth Soln 2.5 ml Bottle EA EYE SCH (21:01)
[2021-07-04] MEDS: Levothyroxine 150 MCG TAB PO SCH (05:26)
[2021-07-04] MEDS: Fish Oil 1,000 MG CAP PO SCH (08:28)
[2021-07-04] MEDS: Lorazepam 0.5 MG TAB PO SCH ×2 (08:28→21:14)
[2021-07-04] MEDS: Multivitamin W/ Minerals 1 TAB PO SCH (08:28)
[2021-07-04] MEDS: Dabigatran 150 mg Capsule PO SCH ×2 (08:28→21:13)
[2021-07-04] MEDS: Aspirin 81 mg Enteric Coated Tablet PO SCH (08:28)
[2021-07-04] MEDS: Ferrous Sulfate 325 MG TAB PO SCH (08:28)
[2021-07-04] MEDS: Polyethylene Glycol 3350 17 GM Packet PO SCH (08:28)
[2021-07-04] MEDS: Cyanocobalamin (Vitamin B-12) 1,000 MCG TAB PO SCH (08:29)
[2021-07-04] MEDS: Lantus 1000 UNITS/10 ML VIAL SC SCH (08:33)
[2021-07-04] MEDS: Carvedilol 25 MG TAB PO SCH ×2 (08:59→21:14)
[2021-07-04] MEDS: Digoxin 0.125 MG TAB PO SCH (08:59)
[2021-07-04] MEDS: NAMZARIC PO SCH (21:12)
[2021-07-04] MEDS: Latanoprost 0.005% Ophth Soln 2.5 ml Bottle EA EYE SCH (21:12)
[2021-07-04] MEDS: Atorvastatin Calcium 10 MG TAB PO SCH (21:13)
[2021-07-04] MEDS: Meloxicam 7.5 MG TAB PO SCH (21:13)
[2021-07-04] MEDS: Amitriptyline HCl 25 MG TAB PO SCH (21:15)
[2021-07-05] MEDS: Levothyroxine 150 MCG TAB PO SCH (06:36)
[2021-07-05] MEDS: Fish Oil 1,000 MG CAP PO SCH (08:35)
[2021-07-05] MEDS: Multivitamin W/ Minerals 1 TAB PO SCH (08:35)
[2021-07-05] MEDS: Carvedilol 25 MG TAB PO SCH (08:35)
[2021-07-05] MEDS: Lorazepam 0.5 MG TAB PO SCH (08:35)
[2021-07-05] MEDS: Ferrous Sulfate 325 MG TAB PO SCH (08:35)
[2021-07-05] MEDS: Dabigatran 150 mg Capsule PO SCH (08:36)
[2021-07-05] MEDS: Digoxin 0.125 MG TAB PO SCH (08:38)
[2021-07-05] MEDS: Polyethylene Glycol 3350 17 GM Packet PO SCH (08:40)
[2021-07-05] MEDS: Lantus 1000 UNITS/10 ML VIAL SC SCH (08:41)
[2021-07-05] MEDS: Aspirin 81 mg Enteric Coated Tablet PO SCH (08:45)
[2021-07-05] MEDS: Cyanocobalamin (Vitamin B-12) 1,000 MCG TAB PO SCH (09:21)
[2021-07-05 13:15] VITALS: BP 136/70; TEMP 98.4
== END 2021-07-05 13:00 | disposition home health service (06) | DRG 948 ==
LOC: UNDOADMIN 17:20 → NAV ACUTE 17:20
PROVIDERS: ADMIT Family Medicine; ATTEND Family Medicine
DX: R53.1 Weakness (principal); C91.10 Chronic lymphocytic leukemia of B-cell type not having achieved remission; J06.9 Acute upper respiratory infection, unspecified; Z20.822 Contact with and (suspected) exposure to COVID-19; E86.0 Dehydration; E11.9 Type 2 diabetes mellitus without complications; M19.90 Unspecified osteoarthritis, unspecified site; E78.00 Pure hypercholesterolemia, unspecified; F32.A Depression, unspecified; H40.9 Unspecified glaucoma; Z96.653 Presence of artificial knee joint, bilateral; E03.9 Hypothyroidism, unspecified; R00.1 Bradycardia, unspecified; Z96.641 Presence of right artificial hip joint; F03.90 Unspecified dementia, unspecified severity, without behavioral disturbance, psychotic disturbance, mood disturbance, and anxiety; Z86.73 Personal history of transient ischemic attack (TIA), and cerebral infarction without residual deficits; Z95.1 Presence of aortocoronary bypass graft; Z90.89 Acquired absence of other organs; Z87.891 Personal history of nicotine dependence; Z79.4 Long term (current) use of insulin; Z88.5 Allergy status to narcotic agent; Z88.8 Allergy status to other drugs, medicaments and biological substances
CPT/HCPCS: 36415; 36416; 80048; 80053; 85025; J1815; U0003; U0005

== ENCOUNTER 2021-09-10 10:21 | Outpatient (CLI) | payer MEDICARE ==
[2021-09-10 10:46] LABS: #Basophils 0.1 thou/uL (0.0-0.2); #Eosinphils 0.4 thou/uL (0.0-0.7); #Lymphocytes 3.6 thou/uL (1.20-3.40); #Monocytes 0.6 thou/uL (0.11-0.59); #Neutrophils 4.3 thou/uL (1.40-6.50); %Basophils 0.8 % (0.0-1.0); %Eosinophils 4.2 % (0.0-10.0); %Lymphocytes 40.6 % (21.0-51.0); %Monocytes 6.3 % (0.0-10.0); %Neutrophils 48.1 % (42.0-75.0); Hemoglobin 14.2 g/dL (14.0-18.0); Mean Corpuscular HGB CONC 31.6 g/dL (32.0-36.0); Mean Corpuscular Hemoglobin 29.5 pg (27.0-31.0); Mean Corpuscular Volume 93.4 fL (78.0-98.0); Mean Platelet Volume 6.2 fL (7.4-10.4); Platelet Count 195 thou/uL (130-400); White Blood Cell (WBC) Count 8.9 thou/uL (4.8-10.8)
[2021-09-10 12:04] LABS: Follow-up Hematology Comp? YES; Follow-up Result - Hematology REPORT FAXED
== END 2021-09-10 10:22 | disposition home or self-care (01) ==
LOC: NAV LABSP 10:21
PROVIDERS: ATTEND Family Medicine
DX: N39.0 Urinary tract infection, site not specified (principal)
CPT/HCPCS: 85025

== ENCOUNTER 2021-10-29 02:27 | Emergency (ER) | payer MEDICARE | END 2021-10-29 05:00 | disposition home or self-care (01) | LOC: NAV ERS 02:27 | DX: S30.0XXA Contusion of lower back and pelvis, initial encounter (principal); F03.90 Unspecified dementia, unspecified severity, without behavioral disturbance, psychotic disturbance, mood disturbance, and anxiety; I25.10 Atherosclerotic heart disease of native coronary artery without angina pectoris; E11.9 Type 2 diabetes mellitus without complications; E03.9 Hypothyroidism, unspecified; E78.5 Hyperlipidemia, unspecified; I48.91 Unspecified atrial fibrillation; W06.XXXA Fall from bed, initial encounter; C91.10 Chronic lymphocytic leukemia of B-cell type not having achieved remission; Z95.0 Presence of cardiac pacemaker; Z79.82 Long term (current) use of aspirin; Z79.4 Long term (current) use of insulin; Z79.899 Other long term (current) drug therapy | CPT/HCPCS: 72170; 99285 ==